=== PATIENT | female | born 1950 | race Caucasian/White ===

== ENCOUNTER → 2017-04-12 | Outpatient (CLI) | payer MEDICARE ==
--- NOTE | 2017-04-12 16:44 | Diagnostic Imaging Report ---
EXAM: Bilateral screening mammogram. The current study was also evaluated with a Computer Aided Detection (CAD) system. INDICATION: Screening. No current complaints stated on the questionnaire. COMPARISON: 03/06/2016. FINDINGS: The breasts are composed of heterogeneously dense parenchyma which may decrease mammographic sensitivity. There are scattered benign-appearing calcifications. Asymmetries along the lateral aspect of the right breast are seen. The left breast demonstrates no definite change. IMPRESSION: Focal compression views and ultrasound evaluation for lateral right breast asymmetries recommended. ACR BI-RADS Category 0: Incomplete. (Needs additional imaging evaluation). Result letter will be mailed to the patient. Note: At least 10% of breast cancer is not imaged by mammography. Dictated by: Dictated on workstation # [id number]
== END ==
LOC: RAD 11:07
PROVIDERS: ATTEND Internal Medicine
DX: Z12.31 Encounter for screening mammogram for malignant neoplasm of breast (principal); N64.89 Other specified disorders of breast
CPT/HCPCS: 77067

== ENCOUNTER → 2017-05-10 | Outpatient (CLI) | payer MEDICARE ==
--- NOTE | 2017-05-10 11:57 | Diagnostic Imaging Report ---
EXAMINATION: Right breast diagnostic mammogram with a Computer Aided Detection (CAD) system. INDICATION: Asymmetries in the upper and lateral aspects of the right breast. FINDINGS: Focal compression views in the outer aspect in the CC projection and in the upper aspect with a lateral view were performed and demonstrate heterogeneously dense background parenchyma with less prominent underlying asymmetries, in favor of summation artifacts. No confirmed underlying mass is seen. IMPRESSION: Focal compression views demonstrate less prominent asymmetry, suggestive of summation artifact of parenchyma. An ultrasound evaluation is pending. ACR BI-RADS Category 0: Incomplete. (Needs additional imaging evaluation). Result letter will be mailed to the patient. Note: At least 10% of breast cancer is not imaged by mammography. Dictated by: Dictated on workstation # [id number]
--- NOTE | 2017-05-10 12:00 | Diagnostic Imaging Report ---
EXAMINATION: Right breast ultrasound. INDICATION: Asymmetries seen on mammography. FINDINGS: The four-quadrants and retroareolar region of the right breast were scanned with no underlying abnormality seen. IMPRESSION: Negative study. Additional mammographic views suggested no underlying mass with asymmetries likely related to summation artifacts of parenchyma. Annual screening mammograms are recommended. ACR BI-RADS Category 1: Negative. Dictated by: Dictated on workstation # [id number]
== END ==
LOC: RAD 09:12
PROVIDERS: ATTEND Internal Medicine
DX: N64.89 Other specified disorders of breast (principal)
CPT/HCPCS: 76641

== ENCOUNTER 2018-01-24 10:48 | Outpatient (CLI) | payer MEDICARE ==
[~2018-01-24] VITALS: Ht 175.3 cm; Wt 69.9 kg
[2018-01-24 10:56] VITALS: BP 129/70
[2018-01-24] MEDS ORDERED: CHOL10007 PO (12:07)
[2018-01-24] MEDS ORDERED: TRIA1TAB3 PO (12:09)
== END 2018-01-24 11:07 | disposition home or self-care (01) ==
LOC: PREOP 10:48
PROVIDERS: ATTEND Podiatrist Foot & Ankle Surgery
DX: Z01.818 Encounter for other preprocedural examination (principal); Z11.2 Encounter for screening for other bacterial diseases; M20.41 Other hammer toe(s) (acquired), right foot; M77.41 Metatarsalgia, right foot
CPT/HCPCS: 87081

== ENCOUNTER 2018-02-14 06:16 | Day surgery (SDC) | payer MEDICARE ==
--- NOTE | 2018-02-02 08:25 | HISTORY AND PHYSICAL ---
DATE OF SERVICE: 02/14/2018 HISTORY OF PRESENT ILLNESS: The patient is a 67-year-old white female who is going to be undergoing hammertoe reduction of the 2nd through 5th digits on the right and a second metatarsal ostectomy on the right on 02/14/2018. She has had difficulty wearing normal footwear secondary to her hammertoes and reports some pain, especially of the second right digit with drift. She reports otherwise she has been feeling well and would like to do more walking, but is hampered by her foot discomfort. She does report if she stands too long, she will have some left lower extremity pain from the upper hamstring area to the calf area. It goes away within several minutes of sitting down and it is not keeping her from walking. She has a history of hypertension with no other significant past medical history. She has no history of pulmonary disease or cardiovascular disease. Her hypertension has been under good control. PAST SURGICAL HISTORY: Significant for hysterectomy in 2000. She had partial left retinal detachment requiring surgery in 09/2014, which spared her vision. PHYSICAL EXAMINATION: GENERAL: Reveals a well-appearing white female appears to be in no acute distress. VITAL SIGNS: Weight 154.2 pounds, 5 feet 9 inches tall. Blood pressure 120/90 initially and at the end of the interview 120/84. NECK: Revealed no JVD, adenopathy or bruits. CHEST: Clear. CARDIOVASCULAR: Reveals a regular rate and rhythm without murmur, S3 or S4. EXTREMITIES: Reveal no cyanosis, clubbing or edema. Dorsalis pedis pulses are 2+ and symmetrical. No evidence for edema, ulceration or dermatitis is noted. Hammertoe deformities are noted on the 2nd through 5th digits of the right foot. She has no palpable pain over the left thigh. Knee reveals no pain to palpation over the anserine bursa or medial or lateral joint lines. No crepitus is noted. No evidence for Long cyst is noted. ASSESSMENT AND PLAN: 1. There are no medical contraindications to proceeding with planned reduction of hammertoes and second metatarsal ostectomy. 2. Hypertension, under reasonable control. 3. Suspect left lower extremity radiculopathy with lumbar etiology likely L4-5 from the patient's description. Discussed conservative medical management.
[~2018-02-14] VITALS: Ht 175.3 cm; Wt 69.9 kg
[2018-02-14 06:10] VITALS: BP 133/82
[~2018-02-14 06:16] MED LIST: CHOL10007 PO; TRIA1TAB3 PO
[2018-02-14] MEDS: LACTATED RINGERS 1,000 ML IV PRN ×2 (06:30→08:10)
[2018-02-14] MEDS ORDERED: NS (IVPB) 100 ML ONE (06:55)
[2018-02-14] MEDS ORDERED: ceFAZolin 1,000 MG (ANCEF) VIAL ONE (06:55)
[2018-02-14] MEDS ORDERED: ceFAZolin INJECTION 1,000 MG in NS (IVPB) 100 ML IV ONE (07:00)
[2018-02-14] MEDS ORDERED: MIDAZOLAM 2 MG/2 ML (VERSED) VIAL ONE (07:09)
[2018-02-14] MEDS ORDERED: fentaNYL INJECTION 100 MCG/2 ML AMP ONE (07:10)
[2018-02-14] MEDS ORDERED: LIDOCAINE 1% INJ 20 ML (XYLOCAINE) VIAL ONE (07:20)
[2018-02-14] MEDS ORDERED: BUPIVACAINE 0.5% 30 ML (SENSORCAINE) VIAL ONE (07:20)
[2018-02-14] MEDS ORDERED: DEXAMETHASONE 10 MG/ML (DECADRON) 1 ML VIAL ONE (07:20)
--- NOTE | 2018-02-14 07:33 | Progress Note-Pre Operative ---
Pre-Operative Progress Note H&P Reviewed The H&P was reviewed, patient examined and no changes noted. Date Seen by Provider: Feb 14, 2018 Time Seen by Provider: 07:32 Date H&P Reviewed: Feb 14, 2018 Time H&P Reviewed: 07:32 Pre-Operative Diagnosis: Hammertoes right 2, 3, 4, 5 and hypertrophic 2nd metatarsal AZUL SWAN DPM Feb 14, 2018 7:33 am
[2018-02-14] MEDS ORDERED: LIDOCAINE PF 2% 5 ML (XYLOCAINE) VIAL ONE (08:51)
[2018-02-14] MEDS ORDERED: proPOfol 200 MG/20 ML (DIPRIVAN) VIAL IV ONE (08:51)
[2018-02-14] MEDS ORDERED: SEVOFLURANE (ULTANE) 15 ML INHAL SOLN ONE ×4 (08:51→09:24)
[2018-02-14] MEDS ORDERED: LIDOCAINE JELLY 2% (XYLOCAINE) 5 ML TUBE ONE (08:51)
[2018-02-14] MEDS ORDERED: ONDANSETRON 4 MG/2 ML (SDV) Z0FRAN ONE (08:52)
--- NOTE | 2018-02-14 09:35 | Progress Note-Post Operative ---
Post-Operative Progess Note Surgeon (s)/Plow Mechanic (s) Surgeon AZUL SWAN DPM Plow Mechanic: NONE Pre-Operative Diagnosis Hammertoes right 2, 3, 4, 5 and hypertrophic 2nd metatarsal Post-Operative Diagnosis same plus hypertrophic condyle of the right hallux Procedure & Operative Findings Date of Procedure 02/14/18 Procedure Performed/Findings Reduction of hammertoes 2, 4, 5 right, flexor tendon release 3rd right, 2nd metatarsal osteotomies, all right Anesthesia Type general Estimated Blood Loss Estimated blood loss (mL): minimal Specimens/Packing Specimens Removed none AZUL SWAN DPM Feb 14, 2018 9:35 am
[2018-02-14] MEDS ORDERED: CEPH500C PO (09:42)
[2018-02-14] MEDS ORDERED: ACHD5005 PO (09:42)
[2018-02-14] MEDS ORDERED: ONDANSETRON 4 MG/2 ML (SDV) Z0FRAN IVP PRN ×2 (09:45→10:15)
[2018-02-14] MEDS ORDERED: morphine INJ 10 MG/ML 1ML (SYR OR VIAL) IVP PRN (09:45)
[2018-02-14] MEDS ORDERED: MEPERIDINE (DEMEROL) INJ 50 MG/ML IVP PRN (09:45)
[2018-02-14] MEDS ORDERED: LACTATED RINGERS 1,000 ML IV SCH (10:01)
[2018-02-14] MEDS ORDERED: HYDROcodone/APAP 5 MG/325 MG (LORTAB) TAB PO PRN (10:15)
[2018-02-14 10:25] VITALS: BP 104/62
--- NOTE | 2018-02-14 10:51 | Diagnostic Imaging Report ---
INDICATION: Postop right foot. Time of exam 10:09 AM K wires are identified in the second through fourth toes. There's been partial resection of the distal aspect of the proximal phalanx of the fifth toe. There are screws within the distal first and second metatarsals. Bunionectomy has been performed. IMPRESSION: Satisfactory postop right foot. Dictated by: Dictated on workstation # [id number]
[2018-02-14 10:55] VITALS: BP 108/62
--- NOTE | 2018-02-14 11:39 | Physical Therapy Ortho Eval ---
PT Orthopedic Evaluation Type of Surgery right foot hammertoe surgery Prior Level of Function Current Living Status: Alone Locomotion (Upon Admit): Independent Patient states she has access to a rolling walker. Subjective Subjective Patient is partial weight bearing on right foot. Patient states she is weak on the left leg due to a nerve injury so she will be using a walker. Entry Into Home: Stairs Without Railing Steps Into Home: 1 Objective Objective Patient has no pain and states that her right foot is pretty numb. Motor Control Motor Control: Motor Control WNL ROM ROM: WFL Strength NT Transfer Transfers (B, C, W/C) (FIM): 5 Gait Gait Assistive Device: FWW Right Lower Extremity: Right Weight Bearing Status RLE: Partial Weight Bearing Left Lower Extremity: Left Weight Bearing Status LLE: Full Weight Bearing Gait (FIM): 2 Distance: 80' Gait Level of Assist: 4 (CGA) Summary/Comments no LOB. Patient also went up and down 1 step using a rolling walker with CGA and cues for safety and foot placement. Treatment Rendered Treatment: Therapeutic Exercises, Gait Train, Step Train Exercise Instruction: Ankle Pumps LAQ Assessment/Goals Goal Time Frame: 1 Visit Plan Treatment Plan: Discharge PT/Family Agrees to Plan: Yes Time Time In: 1113 Time Out: 1132 Total Billed Treatment Time: 19 Billed Treatment Time 1 visit EVL 19' Yes PT/OT Therapy GCodes Therapy Functional Limitation: Physical Therapy Test(s)/Tool used to determine: Level of Assistance Scale Functional Limitation-Current Charge Code: MOBCUR Modifier: CI Functional Limitation-Goal Charge Code: MOBGOAL Modifier: CI Functional Limitation-D/C Charge Codes: MOBDC Modifier: CI RADHA STARKS PT Feb 14, 2018 11:39
--- NOTE | 2018-02-14 14:40 | Anesthesia-General Post-Op ---
General Patient Condition Mental Status/LOC: Same as Preop Cardiovascular: Satisfactory Nausea/Vomiting: Absent Respiratory: Satisfactory Pain: Controlled Complications: Absent Post Op Complications Complications None Follow Up Care/Instructions Patient Instructions None needed. Anesthesia/Patient Condition Patient Condition Patient was seen after surgery and prior to discharge and she was doing well, no complaints, stable vital signs, no apparent adverse anesthesia problems. ANA FORTUNE DO Feb 14, 2018 14:40
--- NOTE | 2018-02-14 18:45 | OPERATIVE REPORT ---
DATE OF SERVICE: 02/14/2018 SURGEON: Jayla Swan DPM PREOPERATIVE DIAGNOSES: 1. Hammer digit syndrome, right second, third, fourth and fifth digits. 2. Hypertrophic second metatarsal right foot. 3. Hypertrophic condyle, right hallux. POSTOPERATIVE DIAGNOSES: 1. Hammer digit syndrome, right second, third, fourth and fifth digits. 2. Hypertrophic second metatarsal right foot. 3. Hypertrophic condyle, right hallux. PROCEDURE: 1. Reduction of hammertoe, right second, fourth and fifth digits. 2. Flexor tendon release, right third toe. 3. Second metatarsal osteotomy, right foot. 4. Condylectomy, right hallux. WOUND CLASS: Clean. ANESTHESIA: General. HEMOSTASIS: Pneumatic thigh tourniquet at 250 mmHg. INDICATION: This 52-year-old female presents complaining of painful hammertoes associated with the right foot. Conservative therapy has met with unsatisfactory results and the patient is agreeable to surgical intervention after risks and complications were discussed at length. No guarantees were extended to the patient and she is willing to proceed. DESCRIPTION OF PROCEDURE: The patient was brought back to the operating table, placed in a secure supine position. A general anesthetic was then induced. Appropriate timeout was performed. A pneumatic thigh tourniquet was placed on the right lower extremity over several layers of padding. The right foot was anesthetized utilizing 10 mL of 0.5% Marcaine injected in a local effusion to the second, third, fourth and fifth digits and the second metatarsal head area. The right foot was then prepped and draped in normal sterile manner. The right foot was then elevated and allowed to exsanguinate after which the tourniquet was inflated to 250 mmHg. Attention was then directed to the dorsal aspect of the right second and fourth digits, where approximately 4 cm longitudinal linear incision was created. The incision was deepened in the same plane with great care to identify and retract all vital neurovascular structures. All the necessary blood vessels were cauterized as encountered. The incision overlying the second digit was extended down to the extensor tendon where a Z slide lengthening was performed. The extensor tendon was reflected proximally releasing the extensor jorgensen. A dorsal capsulorrhaphy was performed to the metatarsophalangeal joint. The medial and lateral collateral ligaments were also released at the metatarsophalangeal joint. This exposed the hypertrophic head of the right second metatarsal. Next, an oblique osteotomy was performed from dorsal to plantar starting at the distal lateral aspect of the articular cartilage extending proximally and medially. This allowed the capital fragment to translocate proximally and medially. The capital fragment was fixated in its corrected position utilizing a 2.0 snap-off screw 14 mm of length driven from the most medial aspect of the articular cartilage across the osteotomy in a proximal lateral orientation. The head was further contoured and smoothed with a power bur. Attention was then directed to the fourth digit where a Z slide lengthening was performed as well and a dorsal capsulorrhaphy after the extensor jorgensen was released overlying the metatarsophalangeal joint. Next, the same procedure was performed at the proximal interphalangeal joint for the second and fourth digits where the head of the proximal phalanx was fashioned into a peg and a hole was created at the base of the middle phalanx for the peg-in-hole type arthrodesis. Excellent bony apposition and fixation was appreciated after a 0.045 K wire was driven down the digits of the second and fourth rays. The excess K wire was cut and a protective ball placed over the end of the wire. The wounds were flushed with copious amounts of normal saline and closure was performed in layers. Deep closure was performed with 3-0 Vicryl, superficial with 4-0 Vicryl, skin closure with 4-0 Prolene in a horizontal mattress type stitch. Attention was then directed to the right third toe where a flexible contracture was identified. Utilizing a 15 blade, a stab incision was created to the plantar aspect of the right third toe at the proximal interphalangeal joint. This allowed the digit to come into rectus alignment. A 0.045 K wire was driven down the end of the toe securing the digit in a rectus alignment. The wound was flushed with copious amounts of normal saline. The excess K wire was cut and a protective ball placed over the end of the wire. Attention was then directed to the right fifth digit where two semi elliptical incisions of approximately 1 cm were created from proximal lateral to distal medial orientation. The circumscribed skin was removed in toto. Dissection was carried out to the dorsal aspect of the extensor tendon overlying the proximal interphalangeal joint, which was sharply incised. The medial and lateral collateral ligaments were also released exposing the hypertrophic head of the proximal phalanx, which was resected utilizing power sagittal saw. The wound was flushed with normal saline, after which closure was performed in layers. Deep closure was performed with 3-0 Vicryl, superficial with 4-0 Vicryl, skin closed with 4-0 Prolene in a horizontal mattress type stitch. Attention was then directed to the medial aspect of the right hallux where at the interphalangeal joint a bony prominence was identified. A 2 cm longitudinal linear incision was created and subperiosteal dissection was carried out identifying the hypertrophic condyle, which was then reduced utilizing a side cutting bur. The wound was flushed with copious amounts of normal saline. Closure was then performed with 4-0 Prolene in a horizontal mattress type stitch. Postoperative injection consisted of 10 mL of 0.5% Marcaine injected in a local effusion to all the digits of the right foot. Postoperative dressing consisted of Betadine soaked Adaptic, sterile 4 x 4, sterile Kerlix, all secured with a Coban wrap. The patient tolerated the anesthesia and procedure well, was transported from the operating room to the recovery area with vital signs stable and vascular status intact to all digits of the right foot. She was given a prescription for Keflex and Vicodin. She is to follow up in my office in 10 days' period of time or sooner if necessary. She is to be partial weightbearing with the use of a walker for the next four weeks. Job ID: [id number] DocumentID: [id number] Dictated Date: 02/14/2018 09:50:41 [employer] Winder Date: 02/14/2018 18:44:52 Dictated By: JAYLA SWAN DPM
== END 2018-02-14 11:35 | disposition home or self-care (01) ==
LOC: SDC 06:16
PROVIDERS: ATTEND Podiatrist Foot & Ankle Surgery
DX: M20.41 Other hammer toe(s) (acquired), right foot (principal); M89.371 Hypertrophy of bone, right ankle and foot; I10 Essential (primary) hypertension; Z79.899 Other long term (current) drug therapy
CPT/HCPCS: 73620

== ENCOUNTER → 2018-04-13 | Outpatient (CLI) | payer MEDICARE ==
[~2018-04-13] MED LIST changes: +ACHD5005 PO; +CEPH500C PO
--- NOTE | 2018-04-13 16:27 | Diagnostic Imaging Report ---
Indication: Pre-MRI screening. Time of exam: 3:59 PM Impression: No radiopaque orbital foreign bodies are identified. Dictated by: Dictated on workstation # [id number]
--- NOTE | 2018-04-13 17:04 | Diagnostic Imaging Report ---
PROCEDURE: MRI left joint lower extremity without contrast. TECHNIQUE: Multiplanar, multisequence MR imaging of the left knee was performed without contrast. COMPARISON: None available. INDICATION: Knee pain. FINDINGS: MENISCI Medial meniscus: Near-complete radial tear at the posterior root fibers of the medial meniscus. Degenerative free-edge tearing of the medial meniscus body is present. The body of the medial meniscus is near completely extruded into the medial gutter. Lateral meniscus: Normal. LIGAMENTS ACL: Intact. PCL: Intact. MCL: MCL is intact with edema on both sides of the ligament indicative of low-grade sprain. LCL: The lateral collateral ligamentous complex is intact. EXTENSOR MECHANISM The extensor mechanism is intact. CARTILAGE Medial compartment: Diffuse chondral thinning throughout the medial compartment without superimposed full-thickness chondral loss. Lateral compartment: The lateral compartment articular cartilage is preserved without high-grade chondromalacia. Patellofemoral compartment: The patellofemoral articular cartilage is well preserved without high-grade chondromalacia. BONE Subchondral insufficiency fracture in the central weightbearing aspect of the medial femoral condyle has no collapse of the subchondral bone plate. There is a large amount of surrounding bone marrow edema present. SOFT TISSUE Small knee joint effusion. No Long's cyst. Nonspecific edema within the popliteal fossa is likely reactive in nature. IMPRESSION: 1. Acute to subacute subchondral insufficiency fracture of the medial femoral condyle. No articular surface depression. 2. Associated near-complete radial tear in the posterior horn of the medial meniscus at its root insertional fibers. 3. Low-grade MCL sprain. 4. Partial-thickness chondral loss in the medial compartment is degenerative in nature. Remainder of the articular cartilage throughout the knee is well preserved. 5. Small knee joint effusion. Dictated by: Dictated on workstation # [id number]
== END ==
LOC: RAD 15:09
PROVIDERS: ATTEND Nurse Practitioner
DX: Z01.818 Encounter for other preprocedural examination (principal); S83.242A Other tear of medial meniscus, current injury, left knee, initial encounter; M84.452A Pathological fracture, left femur, initial encounter for fracture; S83.412A Sprain of medial collateral ligament of left knee, initial encounter; M17.12 Unilateral primary osteoarthritis, left knee
CPT/HCPCS: 70250; 73721

== ENCOUNTER → 2018-05-20 | Outpatient (CLI) | payer MEDICARE ==
--- NOTE | 2018-05-20 13:31 | Diagnostic Imaging Report ---
INDICATION: Routine screening. Comparison is made with prior study from 04/12/2017 and 03/06/2016. 2-D and 3-D bilateral screening mammography was performed with CAD. The current study was also evaluated with a Computer Aided Detection (CAD) system. FINDINGS: Both breasts are heterogeneously dense, limiting the sensitivity of mammography. There is some mild nodularity along the lateral aspect of the left breast which appears stable. No new mass or malignant-appearing microcalcifications are seen. The axillae are unremarkable. IMPRESSION: No mammographic features suspicious for malignancy are identified. ACR BI-RADS Category 2: Benign findings. Result letter will be mailed to the patient. Note: At least 10% of breast cancer is not imaged by mammography. Dictated by: Dictated on workstation # [id number]
== END ==
LOC: RAD 09:20
PROVIDERS: ATTEND Internal Medicine
DX: Z12.31 Encounter for screening mammogram for malignant neoplasm of breast (principal)
CPT/HCPCS: 77067

== ENCOUNTER → 2018-09-07 | Outpatient (CLI) | payer MEDICARE | LOC: LABNPT 18:43 | PROVIDERS: ATTEND Nurse Practitioner Family | DX: N30.01 Acute cystitis with hematuria (principal) | CPT/HCPCS: 87077; 87088; 87186 ==

== ENCOUNTER 2018-09-16 07:30 | Emergency (ER) | payer MEDICARE ==
[~2018-09-16] VITALS: Ht 175.3 cm; Wt 64.0 kg
--- OUTSIDE RECORDS SUMMARY | 2018-09-16 07:34 | XMS REPORT | Clinical Summary ---
Author Author [facility] Organization [facility] Address Unknown Phone Unavailable Care Team Providers Care Public Health Aide Name Role Phone Dat Vera MD PCP Allergies No Known Allergies Current Medications Prescription Sig. Disp. Refills Start End Date Status Date triamterene-hydrochloroth Take 1 capsule by mouth Active iazide (DYAZIDE) 37.5-25 every morning. mg per capsule Active Problems No known active problems Resolved Problems Problem Noted Date Resolved Date Recent retinal detachment, partial, with single defect 10/23/20142013 Vitreous degeneration of left eye 10/23/2014 10/23/2014 Recent retinal detachment, partial, with single defect 10/23/20142013 Vitreous degeneration of left eye 10/23/2014 10/24/2014 Retinal detachment of left eye with multiple breaks 10/23/2014 10/24/2014 Social History Tobacco Use Types Packs/Day Years Used Date Never Smoker Alcohol Use Drinks/Week oz/Week Comments No Sex Assigned at Date Recorded Not on file Last Filed Vital Signs Vital Sign Reading Time Taken Blood Pressure 112/65 10/24/2014 7:09 AM [facility] Pulse 80 10/24/2014 7:09 AM [facility] Temperature 36.5 C (97.7 F) 10/24/2014 7:09 AM [facility] Respiratory Rate 18 10/24/2014 7:09 AM [facility] Oxygen Saturation 95% 10/24/2014 7:09 AM [facility] Inhaled Oxygen - - Concentration Weight 76.3 kg (168 lb 3.4 oz) 10/23/2014 8:02 PM [facility] Height 175.3 cm (5' 9") 10/23/2014 8:02 PM [facility] Body Mass Index 24.84 10/23/2014 8:02 PM [facility] Plan of Treatment Not on file Implants Implanted Type Area Financial Services Consultant Device Expiration Model / Identifier Date Serial / Lot Implant Eye Scleral Buckle Band Non-Tissue Left: Eye [employer] 2018 92-02 / Silicone Style 240 2.5 92-02 - Implant OPHTHALMIC / [id number] Implanted: Qty: 1 on 10/23/2014 by Giovanni Dahl MD Implant Eye Retinal Sponge Grooved Non-Tissue Left: Eye [employer] 2017 92-50-6.4 2.3mm X 6.4mm Style 516g 92-50-6.4 Implant OPHTHALMIC / - [id number] / Implanted: Qty: 1 on 10/23/2014 by [id number] Giovanni Dahl MD Results Not on filefrom Last 3 Months
--- OUTSIDE RECORDS SUMMARY | 2018-09-16 07:35 | XMS REPORT | Continuity of Care Document ---
Author Author [facility] Organization [facility] Address Unknown Phone Unavailable Allergies Active Description Code Type Severity Reaction Onset Reported/Identified Relationship to Patient Clinical Status Yes No Known Drug Allergies [id number] Drug Allergy Unknown N/A 07/10/2011 Medications There is no data. Problems Date Dx Coded Attending Type Code Diagnosis Diagnosed By 07/10/2011 Ot V76.51 02/14/2015 Ot V76.12 02/14/2015 Ot V76.12 02/14/2015 LUCIAN BUCK MD Ot V76.12 02/15/2015 Ot V76.12 02/15/2015 Ot V76.12 02/15/2015 LUCIAN BUCK MD Ot V76.12 03/01/2015 LUCIAN BUCK MD Ot V76.12 03/09/2016 LUCIAN BUCK MD Ot Z12.31 ENCNTR SCREEN MAMMOGRAM FOR MALIGNANT NE 03/19/2016 LUCIAN BUCK MD Ot Z12.31 ENCNTR SCREEN MAMMOGRAM FOR MALIGNANT NE 04/08/2017 Ot V76.12 OTH SCREEN MAMMO-MALIGN NEOPLASM OF ZULAY 04/08/2017 LUCIAN BUCK MD Ot V76.12 OTH SCREEN MAMMO-MALIGN NEOPLASM OF ZULAY 04/08/2017 LUCIAN BUCK MD Ot V76.12 OTH SCREEN MAMMO-MALIGN NEOPLASM OF ZULAY 04/08/2017 LUCIAN BUCK MD Ot Z12.31 ENCNTR SCREEN MAMMOGRAM FOR MALIGNANT NE 04/08/2017 Ot V76.12 OTH SCREEN MAMMO-MALIGN NEOPLASM OF ZULAY 04/08/2017 LUCIAN BUCK MD Ot V76.12 OTH SCREEN MAMMO-MALIGN NEOPLASM OF ZULAY 04/08/2017 LUCIAN BUCK MD Ot V76.12 OTH SCREEN MAMMO-MALIGN NEOPLASM OF ZULAY 04/08/2017 LUCIAN BUCK MD Ot Z12.31 ENCNTR SCREEN MAMMOGRAM FOR MALIGNANT NE 04/09/2017 Ot V76.12 OTH SCREEN MAMMO-MALIGN NEOPLASM OF ZULAY 04/09/2017 LUCIAN BUCK MD Ot V76.12 OTH SCREEN MAMMO-MALIGN NEOPLASM OF ZULAY 04/09/2017 LUCIAN BUCK MD Ot V76.12 OTH SCREEN MAMMO-MALIGN NEOPLASM OF ZULAY 04/09/2017 LUCIAN BUCK MD Ot Z12.31 ENCNTR SCREEN MAMMOGRAM FOR MALIGNANT NE 04/09/2017 Ot V76.12 OTH SCREEN MAMMO-MALIGN NEOPLASM OF ZULAY 04/09/2017 LUCIAN BUCK MD Ot V76.12 OTH SCREEN MAMMO-MALIGN NEOPLASM OF ZULAY 04/09/2017 LUCIAN BUCK MD Ot V76.12 OTH SCREEN MAMMO-MALIGN NEOPLASM OF ZULAY 04/09/2017 LUCIAN BUCK MD Ot Z12.31 ENCNTR SCREEN MAMMOGRAM FOR MALIGNANT NE 04/13/2017 LUCIAN BUCK MD Ot R92.8 OTH ABN AND INCONCLUSIVE FINDINGS ON DX 04/13/2017 LUCIAN BUCK MD Ot N64.89 OTHER SPECIFIED DISORDERS OF BREAST 04/13/2017 LUCIAN BUCK MD Ot Z12.31 ENCNTR SCREEN MAMMOGRAM FOR MALIGNANT NE 05/05/2017 LUCIAN BUCK MD Ot N64.89 OTHER SPECIFIED DISORDERS OF BREAST 05/05/2017 LUCIAN BUCK MD Ot Z12.31 ENCNTR SCREEN MAMMOGRAM FOR MALIGNANT NE 05/10/2017 LUCIAN BUCK MD Ot R92.8 OTH ABN AND INCONCLUSIVE FINDINGS ON DX 05/10/2017 LUCIAN BUCK MD Ot R92.8 OTH ABN AND INCONCLUSIVE FINDINGS ON DX 05/10/2017 Ot V76.12 OTH SCREEN MAMMO-MALIGN NEOPLASM OF ZULAY 05/10/2017 LUCIAN BUCK MD Ot V76.12 OTH SCREEN MAMMO-MALIGN NEOPLASM OF ZULAY 05/10/2017 LUCIAN BUCK MD Ot V76.12 OTH SCREEN MAMMO-MALIGN NEOPLASM OF ZULAY 05/10/2017 LUCIAN BUCK MD Ot Z12.31 ENCNTR SCREEN MAMMOGRAM FOR MALIGNANT NE 05/10/2017 LUCIAN BUCK MD Ot N64.89 OTHER SPECIFIED DISORDERS OF BREAST 05/10/2017 LUCIAN BUCK MD Ot Z12.31 ENCNTR SCREEN MAMMOGRAM FOR MALIGNANT NE 05/10/2017 CIELO ABREU, LUCIAN De La Cruz Ot R92.8 OTH ABN AND INCONCLUSIVE FINDINGS ON DX 05/10/2017 LUCIAN BUCK MD Ot R92.8 OTH ABN AND INCONCLUSIVE FINDINGS ON DX 06/02/2017 LUCIAN BUCK MD Ot N64.89 OTHER SPECIFIED DISORDERS OF BREAST 06/28/2017 LUCIAN BUCK MD Ot N64.89 OTHER SPECIFIED DISORDERS OF BREAST 01/26/2018 SOSA DPM, AZUL Q Ot M20.41 OTHER HAMMER TOE(S) (ACQUIRED), RIGHT FO 01/26/2018 SOSA DPM, AZUL Q Ot M77.41 METATARSALGIA, RIGHT FOOT 01/26/2018 SOSA DPM, AZUL Q Ot Z01.818 ENCOUNTER FOR OTHER PREPROCEDURAL EXAMIN 01/26/2018 SOSA DPM, AZUL Q Ot Z11.2 ENCOUNTER FOR SCREENING FOR OTHER BACTER 02/14/2018 SOSA DPM, AZUL Q Ot I10 ESSENTIAL (PRIMARY) HYPERTENSION 02/14/2018 SOSA DPM, AZUL Q Ot M20.41 OTHER HAMMER TOE(S) (ACQUIRED), RIGHT FO 02/14/2018 SOSA DPM, AZUL Q Ot 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, RIGHT ANKLE AND ALVARO 02/14/2018 SOSA DPM, AZUL Q Ot Z79.899 OTHER ROOFING MACHINE TENDER (CURRENT) DRUG THERAPY 02/16/2018 SOSA DPM, AZUL Q Ot I10 ESSENTIAL (PRIMARY) HYPERTENSION 02/16/2018 SOSA DPM, AZUL Q Ot M20.41 OTHER HAMMER TOE(S) (ACQUIRED), RIGHT FO 02/16/2018 SOSA DPM, AZUL Q Ot 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, RIGHT ANKLE AND ALVARO 02/16/2018 SOSA DPM, AZUL Q Ot Z79.899 OTHER ROOFING MACHINE TENDER (CURRENT) DRUG THERAPY 02/20/2018 SOSA DPM, AZUL Q Ot I10 ESSENTIAL (PRIMARY) HYPERTENSION 02/20/2018 SOSA DPM, AZUL Q Ot M20.41 OTHER HAMMER TOE(S) (ACQUIRED), RIGHT FO 02/20/2018 SOSA DPM, AZUL Q Ot 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, RIGHT ANKLE AND ALVARO 02/20/2018 SOSA DPM, AZUL Q Ot Z79.899 OTHER JAIL (CURRENT) DRUG THERAPY 04/14/2018 DALJIT MAZARIEGOS Ot M84.452A PATHOLOGICAL FRACTURE, LEFT FEMUR, INIT 04/14/2018 DALJIT MAZARIEGOS Ot S83.242A OTH TEAR OF MEDIAL MENISCUS, CURRENT INJ 04/14/2018 DALJIT MAZARIEGOSP Ot S83.412A SPRAIN OF MEDIAL COLLATERAL LIGAMENT OF 04/14/2018 DALJIT MAZARIEGOS Ot Z01.818 ENCOUNTER FOR OTHER PREPROCEDURAL EXAMIN 04/14/2018 DALJIT MAZARIEGOS Ot M17.12 UNILATERAL PRIMARY OSTEOARTHRITIS, LEFT 04/14/2018 DALJIT MAZARIEGOS Ot M84.452A PATHOLOGICAL FRACTURE, LEFT FEMUR, INIT 04/14/2018 DALJIT MAZARIEGOS Ot S83.242A OTH TEAR OF MEDIAL MENISCUS, CURRENT INJ 04/14/2018 DALJIT MAZARIEGOS Ot S83.412A SPRAIN OF MEDIAL COLLATERAL LIGAMENT OF 04/14/2018 DALJIT MAZARIEGOS Ot Z01.818 ENCOUNTER FOR OTHER PREPROCEDURAL EXAMIN 05/04/2018 DALJIT MAZARIEGOSP Ot M17.12 UNILATERAL PRIMARY OSTEOARTHRITIS, LEFT 05/04/2018 DALJIT MAZARIEGOS Ot M84.452A PATHOLOGICAL FRACTURE, LEFT FEMUR, INIT 05/04/2018 DALJIT MAZARIEGOS Ot S83.242A OTH TEAR OF MEDIAL MENISCUS, CURRENT INJ 05/04/2018 DALJIT MAZARIEGOS Ot S83.412A SPRAIN OF MEDIAL COLLATERAL LIGAMENT OF 05/04/2018 DALJIT MAZARIEGOS Ot Z01.818 ENCOUNTER FOR OTHER PREPROCEDURAL EXAMIN 05/20/2018 DALJIT MAZARIEGOSP Ot M17.12 UNILATERAL PRIMARY OSTEOARTHRITIS, LEFT 05/20/2018 DALJIT MAZARIEGOS Ot M84.452A PATHOLOGICAL FRACTURE, LEFT FEMUR, INIT 05/20/2018 DALJIT MAZARIEGOS Ot S83.242A OTH TEAR OF MEDIAL MENISCUS, CURRENT INJ 05/20/2018 DALJIT MAZARIEGOSP Ot S83.412A SPRAIN OF MEDIAL COLLATERAL LIGAMENT OF 05/20/2018 DALJIT MAZARIEGOS [facility] Ot Z01.818 ENCOUNTER FOR OTHER PREPROCEDURAL EXAMIN 05/23/2018 LUCIAN BUCK MD Ot Z12.31 ENCNTR SCREEN MAMMOGRAM FOR MALIGNANT NE 06/10/2018 LUCIAN BUCK MD Ot Z12.31 ENCNTR SCREEN MAMMOGRAM FOR MALIGNANT NE 09/09/2018 AMPARO ROBERTSON APRN Ot N30.01 ACUTE CYSTITIS WITH HEMATURIA 09/12/2018 AMPARO ROBERTSON APRN Ot N30.01 ACUTE CYSTITIS WITH HEMATURIA Procedures There is no data. Results Test Result Range Methicillin resistant Staphylococcus aureus (MRSA) screening culture - 11:05 Methicillin resistant Staphylococcus aureus (MRSA) screening culture NEG NRG Bacterial urine culture - 09/07/18 18:20 Bacterial urine culture [id number] NRG COLONY COUNT >100,000/ML NRG FTX;REPORTABLE FINAL WITH SUSCEPTIBILITY REPORTED NR FREE TEXT ENTRY 2 09-09-2018, 0905. NR RML Sensitivity Panel - 09/07/18 18:20 Gentamicin susceptibility test by minimum inhibitory concentration < = NRG Trimethoprim/sulfamethoxazole susceptibility test by minimum inhibitoryconcentration <= NRG Levofloxacin susceptibility test by minimum inhibitory concentration <= NRG Ampicillin susceptibility test by minimum inhibitory concentration < = NRG Cefazolin susceptibility test by minimum inhibitory concentration < = NRG Ceftriaxone susceptibility test by minimum inhibitory concentration <= NRG Ciprofloxacin susceptibility test by minimum inhibitory concentration <= NRG Meropenem susceptibility test by minimum inhibitory concentration < = NRG Nitrofurantoin susceptibility test by minimum inhibitory concentration <= NRG Amoxicillin and clavulanate potassium susc JOAQUÍN <= NRG Encounters ACCT No. Visit Date/Time Discharge Status Pt. Type Provider Facility Loc./Unit Complaint [id number] 09/07/2018 18:43:00 09/07/2018 23:59:59 CLS Outpatient AMPARO ROBERTSON APRN [facility] LABNPT [id number] 05/20/2018 09:20:00 05/20/2018 23:59:59 CLS Outpatient LUCIAN BUCK MD [facility] RAD SCREENING MAMMOGRAM [id number] 04/13/2018 15:09:00 04/13/2018 23:59:59 CLS Outpatient DALJIT MAZARIEGOS [facility] RAD DERANGEMENT OF OTHER MEDIAL MENISCUS [id number] 02/14/2018 06:16:00 02/14/2018 11:35:00 DIS Outpatient SOSA DPCARLOS TaylorIN Q [facility] HAMMERTOE [id number] 01/24/2018 10:48:00 01/24/2018 11:07:00 DIS Outpatient SOSA DPM, AZUL Q [facility] PREOP HAMMERTOE [id number] 05/10/2017 09:12:00 05/10/2017 23:59:59 CLS Outpatient LUCIAN BUCK MD [facility] RAD ABN MAMMO [id number] 04/12/2017 11:07:00 04/12/2017 23:59:59 CLS Outpatient LUCIAN BUCK MD [facility] RAD SCREENING [id number] 03/06/2016 10:57:00 03/06/2016 23:59:59 CLS Outpatient LUCIAN BUCK MD [facility] RAD SCREENING [id number] 02/15/2015 09:35:00 02/15/2015 23:59:59 CLS Outpatient LUCIAN BUCK MD [facility] RAD SCREENING [id number] 10/24/2013 14:50:00 10/24/2013 23:59:59 CLS Outpatient LUCIAN BUCK MD [facility] RAD SCREENING [id number] 08/23/2012 14:25:00 Document Registration [id number] 07/10/2011 07:36:00 Document Registration [id number] 02/23/2011 08:53:00 Document Registration
[2018-09-16] MEDS ORDERED: diphenhydrAMINE 25 MG TAB (BENADRYL) PO ONE (07:45)
[2018-09-16] MEDS ORDERED: FAMOTIDINE 20MG/2ML IV (PEPCID) IVP ONE (07:45)
[2018-09-16] MEDS ORDERED: methylPREDNISolone 125 MG (Solu-MEDROL) VIAL IVP ONE (07:45)
[2018-09-16 08:07] LABS: BILIRUBIN,URINE NEGATIVE (NEGATIVE); CLARITY,URINE CLEAR; COLOR,URINE AMBER; GLUCOSE, URINE (UA) NEGATIVE (NEGATIVE); KETONES,URINE 2+ (NEGATIVE); LEUKOCYTE ESTERASE ,URINE 1+ (NEGATIVE); NITRITE,URINE NEGATIVE (NEGATIVE); PH,URINE 6 (5-9); PROTEIN,URINE 2+ (NEGATIVE); UROBILINOGEN,URINE 1 MG/DL (NORMAL)
[2018-09-16 08:30] LABS: BASOPHILS % (AUTO) 0 % (0-10); EOSINOPHILS # (AUTO) 0.2 10^3/uL (0.0-0.3); EOSINOPHILS % (AUTO) 4 % (0-10); HEMATOCRIT 43 % (35-52); HEMOGLOBIN 14.5 G/DL (11.5-16.0); LYMPHOCYTES # (AUTO) 0.7 X 10^3 (1.0-4.0); LYMPHOCYTES % (AUTO) 16 % (12-44); MEAN CORPUSCULAR HEMOGLOBIN 30 PG (25-34); MEAN CORPUSCULAR HGB CONC 34 G/DL (32-36); MEAN CORPUSCULAR VOLUME 89 FL (80-99); MEAN PLATELET VOLUME 11.2 FL (7.4-10.4); MONOCYTES # (AUTO) 0.7 X 10^3 (0.0-1.0); MONOCYTES % (AUTO) 15 % (0-12); NEUTROPHILS # (AUTO) 2.8 X 10^3 (1.8-7.8); NEUTROPHILS % (AUTO) 64 % (42-75); PLATELET COUNT 142 10^3/uL (130-400); RED BLOOD COUNT 4.81 10^6/uL (4.35-5.85); WHITE BLOOD COUNT 4.3 10^3/uL (4.3-11.0)
[2018-09-16 08:43] LABS: BACTERIA,URINE FEW /HPF; CALCIUM OXALATE CRYSTALS,UR MODERATE /LPF; GRANULAR CASTS,URINE 0-2 /LPF; SQUAMOUS EPITHELIAL CELL,UR 25-50 /HPF; WBC,URINE 0-2 /HPF
[2018-09-16 08:45] LABS: ALBUMIN 4.4 GM/DL (3.2-4.5); BILIRUBIN,TOTAL 0.5 MG/DL (0.1-1.0); CALCIUM 9.5 MG/DL (8.5-10.1); CREATININE SERUM 1.06 MG/DL (0.60-1.30); POTASSIUM 3.4 MMOL/L (3.6-5.0); TOTAL PROTEIN 7.4 GM/DL (6.4-8.2)
[2018-09-16] MEDS ORDERED: LACTATED RINGERS 1,000 ML IV ONE (08:50)
[2018-09-16] MEDS ORDERED: FAMO-119 PO (10:16)
[2018-09-16] MEDS ORDERED: PRD20T PO (10:16)
--- NOTE | 2018-09-16 10:17 | ED General ---
General Chief Complaint: Allergic Reaction Stated Complaint: ALLERGIC REACTION;RASH Nursing Triage Note: PT CO OF ALLERGIC RX, PT HAS GENERALIZED RASH THINKS IS FROM BACTRIM DS Nursing Sepsis Screen: No Definite Risk Allergies and Home Medications Allergies Coded Allergies: sulfamethoxazole (Verified Allergy, Intermediate, RASH, 09/16/18) trimethoprim (Verified Allergy, Intermediate, RASH, 09/16/18) Home Medications Cephalexin 500 Mg Capsule, 1 CAP PO TID Prescribed by: AZUL SWAN on 02/14/18 0942 Cholecalciferol (Vitamin D3) 1,000 Unit Capsule, 1,000 UNIT PO DAILY, (Reported) Hydrocodone Bit/Acetaminophen 1 Tab Tab, 1-2 TAB PO Q4-6HR PRN for PAIN PRN PAIN Prescribed by: AZUL SWAN on 02/14/18 0942 Triamterene/Hydrochlorothiazid 1 Each Tablet, 1 EACH PO DAILY PRN, (Reported) Past Rekomjx-Vvssrb-Wquyrs Hx Patient Social History Alcohol Use: Occasionally Uses Recreational Drug Use: No Smoking Status: Never a Smoker Recent Foreign Travel: No Contact w/Someone Who Travel: No Recent Infectious Disease Expo: No Recent Hopitalizations: No Physical Abuse: No Sexual Abuse: No Immunizations Up To Date PED Vaccines UTD: No Date of Influenza Vaccine: Aug 22, 2017 Seasonal Allergies Seasonal Allergies: No Past Medical History Surgeries: Yes (vein stripping, ) Hysterectomy, Tonsillectomy Respiratory: No Cardiac: Yes (murmur as a child) Hypertension Neurological: No 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 0.0oz. 63.166400gc; 22.7 BMI Method:Stated Progress/Results/Core Measures Suspected Sepsis Recent Fever Within 48 Hours: No Infection Criteria Present: None New/Unexplained Altered Menta: No Sepsis Screen: No Definite Risk SIRS Temperature:100.0 Pulse: 87 Respiratory Rate: 18 Laboratory Tests 09/16/18 07:50: White Blood Count 4.3 Blood Pressure 113 /77 Mean: 89 Laboratory Tests 09/16/18 07:50: Creatinine 1.06, Platelet Count 142, Total Bilirubin 0.5 Results/Orders Lab Results Laboratory Tests Test 09/16/18 07:50 Range/Units White Blood Count 4.3 4.3-11.0 10^3/uL Red Blood Count 4.81 4.35-5.85 10^6/uL Hemoglobin 14.5 11.5-16.0 G/DL Hematocrit 43 35-52 % Mean Corpuscular Volume 89 80-99 FL Mean Corpuscular Hemoglobin 30 25-34 PG Mean Corpuscular Hemoglobin Concent 34 32-36 G/DL Red Cell Distribution Width 13.0 10.0-14.5 % Platelet Count 142 130-400 10^3/uL Mean Platelet Volume 11.2 H 7.4-10.4 FL Neutrophils (%) (Auto) 64 42-75 % Lymphocytes (%) (Auto) 16 12-44 % Monocytes (%) (Auto) 15 H 0-12 % Eosinophils (%) (Auto) 4 0-10 % Basophils (%) (Auto) 0 0-10 % Neutrophils # (Auto) 2.8 1.8-7.8 X 10^3 Lymphocytes # (Auto) 0.7 L 1.0-4.0 X 10^3 Monocytes # (Auto) 0.7 0.0-1.0 X 10^3 Eosinophils # (Auto) 0.2 0.0-0.3 10^3/uL Basophils # (Auto) 0.0 0.0-0.1 10^3/uL Urine Color ANDREE H Urine Clarity CLEAR Urine pH 6 5-9 Urine Specific Dugger 1.025 H 1.016-1.022 Urine Protein 2+ H NEGATIVE Urine Glucose (UA) NEGATIVE NEGATIVE Urine Ketones 2+ H NEGATIVE Urine Nitrite NEGATIVE NEGATIVE Urine Bilirubin NEGATIVE NEGATIVE Urine Urobilinogen 1 NORMAL MG/DL Urine Leukocyte Esterase 1+ H NEGATIVE Urine RBC (Auto) 3+ H NEGATIVE Urine RBC NONE /HPF Urine WBC 0-2 /HPF Urine Squamous Epithelial Cells 25-50 H /HPF Urine Renal Epithelial Cells NONE /HPF Urine Crystals PRESENT H /LPF Urine Calcium Oxalate Crystals MODERATE H /LPF Urine Bacteria FEW H /HPF Urine Casts PRESENT /LPF Urine Hyaline Casts 2-5 H /LPF Urine Granular Casts 0-2 H /LPF Urine Mucus SMALL H /LPF Urine Culture Indicated NO Sodium Level 134 L 135-145 MMOL/L Potassium Level 3.4 L 3.6-5.0 MMOL/L Chloride Level 96 L 98-107 MMOL/L Carbon Dioxide Level 23 21-32 MMOL/L Anion Gap 15 H 5-14 MMOL/L Blood Urea Nitrogen 10 7-18 MG/DL Creatinine 1.06 0.60-1.30 MG/DL Estimat Glomerular Filtration Rate 52 BUN/Creatinine Ratio 9 Glucose Level 111 H 70-105 MG/DL Calcium Level 9.5 8.5-10.1 MG/DL Corrected Calcium 9.2 8.5-10.1 MG/DL Total Bilirubin 0.5 0.1-1.0 MG/DL Aspartate Amino Transf (AST/SGOT) 20 5-34 U/L Alanine Aminotransferase (ALT/SGPT) 16 0-55 U/L Alkaline Phosphatase 70 40-136 U/L C-Reactive Protein High Sensitivity 1.87 H 0.00-0.50 MG/DL Total Protein 7.4 6.4-8.2 GM/DL Albumin 4.4 3.2-4.5 GM/DL My Orders Orders - HENRIQUE WELCH MD Saline Lock/Iv-Start (09/16/18 07:37) Cbc With Automated Diff (09/16/18 07:37) Comprehensive Metabolic Panel (09/16/18 07:37) Hs C Reactive Protein (09/16/18 07:37) Ua Culture If Indicated (09/16/18 07:37) Diphenhydramine Tablet (Benadryl Tablet) (09/16/18 07:45) Famotidine Injection (Pepcid Injection) (09/16/18 07:45) Methylprednisolone Sod Succ (Solu-Medrol (09/16/18 07:45) Saline Lock/Iv-Start (09/16/18 08:50) Lactated Ringers (Lr 1000 Ml Iv Solution (09/16/18 08:50) Medications Given in ED Current Medications Medications Dose Ordered Sig/Ramirez Route Start Time Stop Time Status Last Admin Dose Admin Diphenhydramine HCl 50 mg ONCE ONCE PO 09/16/18 07:45 09/16/18 07:46 DC 09/16/18 07:51 50 MG Famotidine 20 mg ONCE ONCE IVP 09/16/18 07:45 09/16/18 07:46 DC 09/16/18 07:48 20 MG Lactated Ringer's 1,000 ml @ 0 mls/hr Q0M ONCE IV 09/16/18 08:50 09/16/18 08:51 DC 09/16/18 08:56 1,000 MLS/HR Methylprednisolone Sodium Succinate 125 mg ONCE ONCE IVP 09/16/18 07:45 09/16/18 07:46 DC 09/16/18 07:48 125 MG Vital Signs/I&O 09/16/18 07:30 Temp 100.0 Pulse 87 Resp 18 B/P (MAP) 113/77 (89) Pulse Ox 99 Capillary Refill : Less Than 3 Seconds Blood Pressure Mean: 89 Departure Impression Primary Impression: Drug rash Additional Impression: Hypovolemia Disposition: 01 HOME, SELF-CARE Condition: Improved Departure-Patient Inst. Decision time for Depature: 10:13 Referrals: LUCIAN BUCK MD (PCP/Family) Primary Care Physician Patient Instructions: Drug Allergy Add. Discharge Instructions: Take Pepcid (famotidine and (and prednisone as prescribed. Keep Benadryl (diphenhydramine) on hand at all times. Take 50 mg every 4 hours as needed for itching or if you develop swelling of the lips, tongue, or mouth, or difficulty breathing. If you develop these symptoms, immediately present to the nearest emergency room or call 911 after taking 50 mg of Benadryl. It may take several days for the rash to resolve even with medications. Avoid direct sunlight until rash resolves. Always list Bactrim and Xeomin as allergies in future healthcare encounters. All discharge instructions reviewed with patient and/or family. Voiced understanding. Scripts Famotidine (Pepcid) 20 Mg Tablet 20 MG PO BID, #14 TAB Prov: HENRIQUE WELCH MD 09/16/18 Prednisone (Prednisone) 20 Mg Tab 1 TAB PO DAILY, #4 TAB Prov: HENRIQUE WELCH MD 09/16/18 HENRIQUE WELCH MD Sep 16, 2018 10:17
[2018-09-16 10:30] VITALS: BP 110/65
== END 2018-09-16 10:30 | disposition home or self-care (01) ==
LOC: EDUNIT# 07:30 → ER 07:31
DX: L27.0 Generalized skin eruption due to drugs and medicaments taken internally (principal); T50.905A Adverse effect of unspecified drugs, medicaments and biological substances, initial encounter; E86.1 Hypovolemia; I10 Essential (primary) hypertension; Z88.2 Allergy status to sulfonamides; Z88.8 Allergy status to other drugs, medicaments and biological substances; Z90.710 Acquired absence of both cervix and uterus; Z90.89 Acquired absence of other organs
CPT/HCPCS: 36415; 80053; 81000; 85025; 86141; 96361; 96374; 96375

== ENCOUNTER → 2019-07-03 | Outpatient (CLI) | payer MEDICARE ==
[~2019-07-03] MED LIST changes: +FAMO-119 PO; +PRD20T PO
--- NOTE | 2019-07-03 17:45 | Diagnostic Imaging Report ---
INDICATION: Routine screening. COMPARISON is made with prior mammogram from 05/20/2018 and 04/12/2017. TECHNIQUE: 2D and 3D bilateral screening mammography was performed CAD. FINDINGS: Both breasts are heterogeneously dense, limiting the sensitivity of mammography. Bilateral subpectoral breast implants are noted. Left implant somewhat lobulated contour but no evidence of extracapsular rupture is seen. There are benign calcifications in both breasts. No dominant mass or malignant appearing microcalcifications are seen. Axillae are unremarkable. IMPRESSION: BI-RADS Category 2. No mammographic features suspicious for malignancy are identified. ACR BI-RADS Category 2: Benign findings. Result letter will be mailed to the patient. Note: At least 10% of breast cancer is not imaged by mammography. Dictated by: Dictated on workstation # [id number]
== END ==
LOC: RAD 14:53
PROVIDERS: ATTEND Internal Medicine
DX: Z12.31 Encounter for screening mammogram for malignant neoplasm of breast (principal)
CPT/HCPCS: 77067

== ENCOUNTER → 2020-08-20 | Outpatient (CLI) | payer MEDICARE ==
--- NOTE | 2020-08-21 09:14 | Diagnostic Imaging Report ---
EXAMINATION: Digital mammogram INDICATION: Bilateral screening This study was compared to the prior exam of 07/03/2019. 05/20/2018 and 04/12/2017. At this time there are no current complaints. There are bilateral breast implants in place. The implants appear similar to the prior exam. There is no sign of an extracapsular rupture. The fibroglandular tissue in both breasts is heterogeneously dense. This does limit the sensitivity of this exam. Overall, there does not appear to have been any significant change. There is a small area of increased density in the mid lateral aspect of the right breast on the craniocaudad view at posterior depth. This finding cannot be identified on the MLO view and does not seem to persist on the tomographic images. Consequently suspect it is secondary to fibroglandular tissue. There is no primary or secondary sign of malignancy noted. IMPRESSION: 1. There is no evidence of malignancy. 2. The implants appear stable. ACR BI-RADS Category 1: Negative. Result letter will be mailed to the patient. Note: At least 10% of breast cancer is not imaged by mammography. Dictated by: Dictated on workstation # [id number]
== END ==
LOC: RAD 15:00
PROVIDERS: ATTEND Internal Medicine
DX: Z12.31 Encounter for screening mammogram for malignant neoplasm of breast (principal); Z98.82 Breast implant status
CPT/HCPCS: 77063; 77067

== ENCOUNTER 2020-12-02 05:30 | Outpatient (RCR) | payer MEDICARE ==
[~2020-12-02] VITALS: Ht 175 cm; Wt 69.4 kg
[2020-12-04] MEDS ORDERED: HYDR-4226 PO (08:45)
== END 2020-12-02 09:53 | disposition home or self-care (01) ==
LOC: PREOP 05:30
PROVIDERS: ATTEND Surgery
DX: Z01.812 Encounter for preprocedural laboratory examination (principal); D48.9 Neoplasm of uncertain behavior, unspecified; Z20.822 Contact with and (suspected) exposure to COVID-19
CPT/HCPCS: 87635

== ENCOUNTER 2020-12-04 06:52 | Day surgery (SDC) | payer MEDICARE ==
[~2020-12-04] VITALS: Ht 175 cm; Wt 69.4 kg
[2020-12-04] VITALS (8 sets, daily range): BP systolic 107–128; BP diastolic 67–75
[2020-12-04] MEDS ORDERED: ceFAZolin 2 GM IV Premixed 50 ML IV ONE (07:00)
[2020-12-04] MEDS ORDERED: MIDAZOLAM 2 MG/2 ML (VERSED) VIAL ONE (07:13)
[2020-12-04] MEDS ORDERED: fentaNYL INJECTION 100 MCG/2 ML AMP ONE (07:13)
[2020-12-04] MEDS: LACTATED RINGERS 1,000 ML IV PRN ×2 (07:16→09:06)
[2020-12-04] MEDS ORDERED: LIDOCAINE/EPI 1%-1:100,000 (XYLOCAINE) 50 ML ONE (07:18)
[2020-12-04] MEDS ORDERED: PROPOFOL INJECTION 50 ML IV ONE (07:23)
--- NOTE | 2020-12-04 08:07 | Progress Note-Pre Operative ---
Pre-Operative Progress Note H&P Reviewed The H&P was reviewed, patient examined and no changes noted. Time Seen by Provider: 07:59 Date H&P Reviewed: Dec 04, 2020 Time H&P Reviewed: 08:00 Pre-Operative Diagnosis: Left lower Extr mass, site marked LES QUEZADA DO Dec 04, 2020 08:07
[2020-12-04] MEDS ORDERED: HYDR-4226 PO (08:45)
--- NOTE | 2020-12-04 08:45 | Progress Note-Post Operative ---
Post-Operative Progess Note Surgeon (s)/Window Unit Air Conditioning Mechanic (s) Surgeon LES QUEZADA DO Window Unit Air Conditioning Mechanic: CHRISTIANO Palacio Pre-Operative Diagnosis Left lower Extr mass, site marked Post-Operative Diagnosis Same pending path Procedure & Operative Findings Date of Procedure 12/04/20 Procedure Performed/Findings Exc of LLE mass, 4.1 x 1.8cm Anesthesia Type IV sedation by DIRECTOR FOOD AND BEVERAGE Estimated Blood Loss Estimated blood loss (mL): scant Specimens/Packing Specimens Removed LLE mass LES QUEZADA DO Dec 04, 2020 08:45
--- NOTE | 2020-12-04 08:46 | Discharge Inst-Surgical ---
Discharge Inst-Surgical Depart Medication/Instructions New, Converted or Re-Newed RX: RX Given to Pt/Family Patient Instructions Follow up Appt: Make appointment for 1 week. [phone] Instructions: No strenuous activity. May shower in 24 hours, no tub bath or soaking. Use incentive spirometer at home as directed. No Smoking Skin/Wound Care: May remove bandages in am. You need to leave the Dermabond on incision it will fall off on it's own. Symptoms to Report: Appetite Changes, Extremity Discoloration, Numbness/Tingling, Swelling Increased, Bleeding Excessive, Eyesight Changes, Pain Increased, Urine Color Maricel nge, Constipation(Persistent), Fever over 101 degree F, Pain/Pressure in chest, Urinating Difficulty, Cough Up/Vomit Blood, Heart Beat Irreg/Pounding, Pain/Pressure in jaw, Cramps in feet or legs, Lightheadedness, Pain/Pressure in shoulder, Diarrhea(Persistent), Memory Changes Suddenly, Questions/Concerns, Weight gain consecutive days, Dizziness/Fainting, Nausea/Vomiting, Shortness of Breath, Weight gain over 2 pounds If questions or concerns contact your physician Or seek help at emergency department. Activity Activity as Tolerated: Yes Activity Instructions: Avoid Stress to Incision Driving Instructions: No Driving/Refer to Dr. Diane Discharge Diet: No Restrictions Diet After 24 Hours: Clear Liquid if Nauseous If Any Problems/Questions/Issu: Contact Your Physician, Go to Emergency Room Skin/Wound Care Infection Signs and Symptoms: Increased Redness, Foul Odor of Wound, Increased Drainage, Skin Itchy or Has a Rash, Increased Swelling, Temperature Above 101 F Bathing Instructions: Shower Stitches/Manoj/Dermabond Dis: Dermabond Ice Pack: Ice On and Off Site LES QUEZADA DO Dec 04, 2020 08:46
--- NOTE | 2020-12-04 08:50 | Anesthesia-General Post-Op ---
MAC Patient Condition Mental Status/LOC: Same as Preop Cardiovascular: Satisfactory Nausea/Vomiting: Absent Respiratory: Satisfactory Pain: Controlled Complications: Absent Post Op Complications Complications None Follow Up Care/Instructions Patient Instructions None needed. Anesthesiology Discharge Order Discharge Order Patient is doing well, no complaints, stable vital signs, no apparent adverse anesthesia problems. No complications reported per nursing. GONZALEZ MONTESINOS CRNA Dec 04, 2020 08:50
[2020-12-04] MEDS ORDERED: morphine INJ 10 MG/ML 1ML (SYR OR VIAL) IVP ONE (09:00)
--- NOTE | 2020-12-04 19:45 | OPERATIVE REPORT ---
DATE OF SERVICE: 12/04/2020 PREOPERATIVE DIAGNOSIS: Left lower extremity mass. POSTOPERATIVE DIAGNOSIS: Left lower extremity mass, pending pathology. PROCEDURE: Excision of the left lower extremity mass 4.1 cm x 1.8 cm elliptical incision. SURGEON: Chance Uribe DO EDUCATION ADMINISTRATOR: MICKY Virgen. ANESTHESIA: IV sedation by APARTMENT LEASING MANAGER. SPECIMEN: Mass with surrounding elliptical skin incision. BLOOD LOSS: Scant. FLUIDS: Per anesthesia. POSTOPERATIVE CONDITION: Stable. INDICATION FOR PROCEDURE: The patient is a 70-year-old female who has a mass in the left lower extremity. This had been marked prior and then agreed upon prior to surgery, needed to get this removed for pathology diagnosis. FINDINGS: The patient had this removed. A 4.1 x 1.8 cm elliptical incision. PROCEDURE NOTE: After informed consent was obtained, the patient was brought to the operating room, placed on the operating table in supine position. She was sterilely prepped and draped in normal fashion. Local lidocaine was used to infiltrate around this mass in the left lower extremity. Site had been marked. I made an incision with #15 blade, carried down through the skin into subcutaneous tissue, deepened down to subcutaneous tissue with Bovie electrocautery, going under this mass marking it superiorly with a short stitch, laterally with a long stitch and then passing this off table, had removed it completely with what looked like good margins around the mass. At this point, then created advancement flaps just undermining laterally and medially to be able to pull the skin together, closed the deep tissue with 3-0 Vicryl 2 interrupted sutures and then closed the skin with 4-0 undyed Monocryl 5 interrupted subcuticular stitches. Area was cleaned and dried. Dermabond placed as well as dressing. The patient tolerated the procedure and transferred to recovery room in stable condition. Sponge, instrument and needle count was correct at the end of the case. Job ID: [id number] DocumentID: [id number] Dictated Date: 12/04/2020 13:03:37 Sheet Tailer Date: 12/04/2020 19:45:20 Dictated By: CHANCE URIBE DO [facility]
== END 2020-12-04 10:15 | disposition home or self-care (01) ==
LOC: SDC 06:52
PROVIDERS: ATTEND Surgery
DX: D48.5 Neoplasm of uncertain behavior of skin (principal); L82.1 Other seborrheic keratosis; Z88.2 Allergy status to sulfonamides; Z88.1 Allergy status to other antibiotic agents; Z88.8 Allergy status to other drugs, medicaments and biological substances; I10 Essential (primary) hypertension; Z79.899 Other long term (current) drug therapy; Z80.1 Family history of malignant neoplasm of trachea, bronchus and lung; Z90.710 Acquired absence of both cervix and uterus
CPT/HCPCS: 87081; 88305

== ENCOUNTER 2021-02-18 05:28 | Outpatient (RCR) | payer MEDICARE ==
[~2021-02-18] VITALS: Ht 175.3 cm; Wt 68.2 kg
[~2021-02-18 05:28] MED LIST changes: +ASCO250T55 PO; +BIOT1TAB PO; +CHOL400C9 PO; +HYDR-4226 PO
== END 2021-02-18 09:11 | disposition home or self-care (01) ==
LOC: PREOP 05:28
PROVIDERS: ATTEND Podiatrist Foot & Ankle Surgery
DX: Z01.812 Encounter for preprocedural laboratory examination (principal); M20.12 Hallux valgus (acquired), left foot; M20.42 Other hammer toe(s) (acquired), left foot; Z20.822 Contact with and (suspected) exposure to COVID-19
CPT/HCPCS: 87635

== ENCOUNTER 2021-02-21 11:34 | Day surgery (SDC) | payer MEDICARE ==
--- NOTE | 2021-02-17 18:34 | HISTORY AND PHYSICAL ---
DATE OF SERVICE: 02/17/2021 PREOP HISTORY AND PHYSICAL HISTORY OF PRESENT ILLNESS: The patient is a 70-year-old white female scheduled for a bunion surgery as well as toe surgery per Dr. Grayson this Wednesday. She has a past history of hypertension with no known history of cardiovascular or pulmonary disease. She denies chest pain, dyspnea on exertion. She has been limited by foot pain due to osteoarthritis involving predominantly the MTPs. Hypertension has been well controlled and there have been no other significant health problems. MEDICATIONS: Include Dyazide, her only antihypertensive medication. She reports that she has received at least 1 COVID vaccination for which she had no difficulty. PAST SURGICAL HISTORY: Significant for having several skin cancers, basal and squamous cell removed in the past with no known history of melanoma. PHYSICAL EXAMINATION: GENERAL: Reveals a white female appeared to be in no acute distress. VITAL SIGNS: Blood pressure 140/86, weight over the wintertime was up 5.4 pounds to 153. HEENT: Unremarkable. CHEST: Clear to auscultation. CARDIOVASCULAR: Revealed a regular rate and rhythm without murmur, S3 or S4. EXTREMITIES: Reveal no cyanosis, clubbing or edema. ASSESSMENT AND PLAN: The patient is deemed to be of low risk for cardiovascular morbidity or mortality with no medical contraindications to proceeding with planned foot surgery. Job ID: [id number] DocumentID: [id number] Dictated Date: 02/17/2021 18:16:05 Director Enterprise Sales Date: 02/17/2021 18:34:02 Dictated By: LUCIAN BUCK MD
[~2021-02-21] VITALS: Ht 175.3 cm; Wt 68.2 kg
[2021-02-21] VITALS (11 sets, daily range): BP systolic 103–133; BP diastolic 57–86
[2021-02-21] MEDS ORDERED: LACTATED RINGERS 1,000 ML IV PRN (11:45)
[2021-02-21] MEDS ORDERED: ceFAZolin INJECTION 1,000 MG in WATER (STERILE) FOR INJECTION 10 ML IV ONE (11:45)
[2021-02-21] MEDS ORDERED: fentaNYL INJ 100 MCG/2 ML AMP ONE (11:54)
[2021-02-21] MEDS ORDERED: MIDAZOLAM 2 MG/2 ML (VERSED) VIAL ONE (11:55)
[2021-02-21] MEDS ORDERED: LIDOCAINE PF 2% 5 ML (XYLOCAINE) VIAL ONE (11:56)
[2021-02-21] MEDS ORDERED: proPOfol 200 MG/20 ML (DIPRIVAN) VIAL IV ONE (11:56)
[2021-02-21] MEDS ORDERED: ONDANSETRON 4 MG/2 ML (SDV) Z0FRAN ONE (11:58)
[2021-02-21] MEDS ORDERED: SEVOFLURANE (ULTANE) 15 ML INHAL SOLN ONE ×8 (11:58→15:02)
[2021-02-21] MEDS ORDERED: BUPIVACAINE 0.5% 30 ML (SENSORCAINE) VIAL ONE ×3 (12:15→13:20)
[2021-02-21] MEDS ORDERED: LIDOCAINE 1% INJ 20 ML 20 ML VIAL ONE (12:15)
--- NOTE | 2021-02-21 13:03 | Progress Note-Pre Operative ---
Pre-Operative Progress Note H&P Reviewed The H&P was reviewed, patient examined and no changes noted. Date Seen by Provider: Feb 21, 2021 Time Seen by Provider: 13:02 Date H&P Reviewed: Feb 21, 2021 Time H&P Reviewed: 13:02 Pre-Operative Diagnosis: Hallux Valgus, Hammertoe 2, 3, 4, 5, left foot AZUL SWAN DPClaudia Feb 21, 2021 13:03
[2021-02-21] MEDS ORDERED: GLYCOPYRROLATE 0.2 MG/ML (ROBINUL) 2 ML VIAL ONE (13:54)
--- NOTE | 2021-02-21 15:22 | Progress Note-Post Operative ---
Post-Operative Progess Note Surgeon (s)/Esthetician Makeup Artist (s) Surgeon AZUL SWAN DPM Esthetician Makeup Artist: none Pre-Operative Diagnosis Hallux Valgus, Hammertoe 2, 3, 4, 5, left foot Post-Operative Diagnosis Same Procedure & Operative Findings Date of Procedure 02/21/21 Procedure Performed/Findings Enrique-Esau Bunionectomy, Arthrodesis 2nd, Flexor Tendon Release 3rd and 4th, Arthroplasty 5th toe, left foot Anesthesia Type General Estimated Blood Loss Estimated blood loss (mL): Minimal Specimens/Packing Specimens Removed Bone and Tophi, left 1st metatarsal head AZUL SWAN DPM Feb 21, 2021 15:22
[2021-02-21] MEDS ORDERED: CEPH500C PO (15:25)
[2021-02-21] MEDS ORDERED: ACHD5005 PO (15:25)
[2021-02-21] MEDS ORDERED: fentaNYL INJ 100 MCG/2 ML AMP IVP ONE (15:30)
[2021-02-21] MEDS ORDERED: ONDANSETRON 4 MG/2 ML (SDV) Z0FRAN IVP PRN (15:30)
[2021-02-21] MEDS ORDERED: LACTATED RINGERS 1,000 ML IV SCH (15:30)
[2021-02-21] MEDS ORDERED: HYDROcodone/APAP 5 MG/325 MG (LORTAB) TAB PO PRN (15:30)
[2021-02-21] MEDS ORDERED: morphine INJ 10 MG/ML 1ML (SYR OR VIAL) IVP ONE (15:30)
[2021-02-21] MEDS ORDERED: MEPERIDINE (DEMEROL) INJ 50 MG/ML IVP ONE (15:30)
--- NOTE | 2021-02-21 16:06 | Anesthesia-General Post-Op ---
General Patient Condition Mental Status/LOC: Same as Preop Cardiovascular: Satisfactory Nausea/Vomiting: Absent Respiratory: Satisfactory Pain: Controlled Complications: Absent Post Op Complications Complications None Follow Up Care/Instructions Patient Instructions None needed. Anesthesia/Patient Condition Patient Condition Patient is doing well, no complaints, stable vital signs, no apparent adverse anesthesia problems. No complications reported per nursing. DALJIT CARRIZALES CRNA Feb 21, 2021 16:06
--- NOTE | 2021-02-21 16:16 | Diagnostic Imaging Report ---
EXAMINATION: Left foot radiographs, 2 views. COMPARISON: None. HISTORY: 70-year-old female, postoperative evaluation. FINDINGS: There are fixation pins traversing the second, third, and fourth digit phalanges. There is bone loss involving the distal aspect of the second proximal phalanx. Recommend correlation with surgical procedure performed. There are postoperative changes of the distal aspect of the fifth proximal phalanx with widening of the space between the distal aspect of the fifth proximal phalanx and fifth distal interphalangeal joint. There is no identified fifth middle phalanx. There are osteotomy changes of the first metatarsal with fixation screw. There is uncovering of the lateral sesamoid of the first digit. There are osteotomy changes of the first proximal phalanx with postoperative wire at this location. There is no identified acute fracture. There is no aggressive bone destruction. There is degenerative type enthesopathy at the Achilles tendon insertion. There is a small calcaneal heel spur. IMPRESSION: 1. Multifocal postoperative related changes as above without identified complication. Dictated by: Dictated on workstation # [id number]
--- NOTE | 2021-02-21 16:33 | Physical Therapy Ortho Eval ---
PT Orthopedic Evaluation Type of Surgery Left Hallux valgus repair, hammer toe repair toes 2, 3, 4, and 5. Prior Level of Function Current Living Status: Alone Locomotion (Upon Admit): Independent Established Durable Medical Eq: Shower Chair, Front Wheeled Walker, 3 in 1 Commode, Crutches Subjective Subjective Patient reports she has had a similar surgery on the other foot therefor knows about non wt bearing and mobility using devices. Entry Into Home: Stairs With Railing Steps Into Home: 1 Objective Objective Strength and ROM is WNL all extremities with exeption of surgical foot not tested. Motor Control Motor Control: Motor Control WNL ROM ROM: WFL Strength Strength: WFL Transfer SCALE: Activities may be completed with or without assistive devices. 9-Brfjgslcgv-tefszpl completes the activity by him/herself with no assistance from a helper. 5-Set-up or Clean-up Assistance-helper sets up or cleans up; patient completes activity. [place] assists only prior to or following the activity. 4-Supervision or Touching Assistance-helper provides verbal cues and/or touching/steadying and/or contact guard assistance as patient completes activity. Assistance may be provided throughout the activity or intermittently. 3-Partial/Moderate Assistance-helper does LESS THAN HALF the effort. [place] lifts, holds or supports trunk or limbs, but provides less than half the effort. 2-Substantial/Maximal Assistance-helper does MORE THAN HALF the effort. [place] lifts or holds trunk or limbs and provides more than half the effort. 9-Wowlgvlji-vtpiic does ALL the effort. Patient does none of the effort to complete the activity. Or, the assistance of 2 or more helpers is required for the patient to complete the activity. If activity was not attempted, code reason: 7-Patient Refused. 9-Not Applicable-not attempted and the patient did not perform the activity before the current illness, exacerbation or injury. 10-Not Attempted due to Environmental Limitations-(lack of equipment, weather restraints, etc.). 88-Not Attempted due to Medical Conditions or Safety Concerns. Transfers (B, C, W/C) (QC): 5 Gait Gait Assistive Device: FWW 300ft with FWW using hop to gait and non wt bearing on the (L). Ascended and descended a 6inch step with assist from her daughter. Right Lower Extremity: Right Weight Bearing Status RLE: Full Weight Bearing Left Lower Extremity: Left Weight Bearing Status LLE: Non Weight Bearing Gait (QC): 5 Distance (QC): 3=150 ft Distance: 300 Gait Level of Assist: 5 Summary/Comments verbal cues to stay behind center of the walker. Daughter was instructed on this safety issue Assessment/Goals Goal Time Frame: 1 Visit Understands HEP: Yes Safe Ambulation: Yes Plan Treatment Plan: Gait PT/Family Agrees to Plan: Yes Time Time In: 1650 Time Out: 1710 Total Billed Treatment Time: 30 Billed Treatment Time sandor begum low complexity 30 minutes No CHANDNI HINES PT Feb 21, 2021 16:33
--- NOTE | 2021-02-21 20:53 | OPERATIVE REPORT ---
DATE OF SERVICE: 02/21/2021 SURGEON: Azul Swan DPM PREOPERATIVE DIAGNOSES: 1. Hallux abductovalgus metatarsal primus varus, left. 2. Hammertoe, left second, third, fourth and fifth digits. 3. 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 POSTOPERATIVE DIAGNOSES: 1. Hallux abductovalgus metatarsal primus varus, left. 2. Hammertoe, left second, third, fourth and fifth digits. 3. 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 PROCEDURES: 1. Enrique-Esau bunionectomy, left. 2. Arthrodesis of the proximal interphalangeal joint, left second toe. 3. Flexor tendon release, left third digit. 4. Flexor tendon release, left fourth digit. 5. Arthroplasty, left fifth digit. 6. Exostectomy, left hallux. WOUND CLASS: Clean. ANESTHESIA: General. HEMOSTASIS: Pneumatic thigh tourniquet at 300 mmHg. INDICATIONS: This 70-year-old female presents complaining of a painful left foot. Conservative therapy has met with unsatisfactory results and the patient is agreeable to surgical intervention after risks and complications were discussed at length. No guarantees were extended to the patient and she is willing to proceed. DESCRIPTION OF PROCEDURE: The patient was brought back to the operating table, placed in secure supine position. Appropriate timeout was performed. General anesthetic was then induced. Pneumatic thigh tourniquet was placed on left lower extremity over several layers of padding. The left foot was then prepped and draped in normal sterile manner. A presurgical injection of 15 mL of 0.5% Marcaine was injected in a Navarrete block and a digital block to the lesser toes, left foot. The left foot was then elevated, allowed to exsanguinate, after which the tourniquet was inflated to 300 mmHg. Attention was then directed to the dorsal aspect of the left first ray where a 6 cm longitudinal linear incision was created. The incision was deepened in same plane with great care to identify and retract all vital neurovascular structures. Only necessary blood vessels were cauterized as encountered. The incision was deepened down to the capsule where a longitudinal capsulotomy was performed. This exposed the hypertrophic medial eminence to the first metatarsal head, which was resected utilizing a power sagittal saw. Next, blunt dissection was carried out into the first intermetatarsal space where a lateral release was performed. The conjoint tendon of the adductor hallucis was released lateral capsule. Lateral capsulorrhaphy was also released. The fibular sesamoidal ligament was also released. The hallux was then forcibly abducted releasing any additional fibers holding in its abnormal position. Attention was redirected to the first metatarsal head medial aspect where a Chevron-type osteotomy was performed. This allowed the capital fragment to translocate laterally and it was fixated in its corrected position utilizing a threaded 0.062 K-wire driven from proximal dorsal to plantar distal across the osteotomy with great care not to penetrate the articular cartilage. The K-wire was cut flush with the dorsal aspect of the first metatarsal. The head of the first metatarsal was further contoured and smoothed with a power sagittal saw, followed by a power bur. It should be noted that a portion of the medial eminence of the first metatarsal head was sent for gross and microscopic evaluation. White chalk like material was noted to the metatarsal head as well as the capsule grossly identified to be tophi. Attention was then directed to the proximal phalanx of the left hallux where an Esau-type osteotomy was performed. Two bone cuts were created, resecting a wedge of bone with the base medial and lateral cortices held intact to the diaphysis of the proximal phalanx. Once the wedge of bone was resected, the gap was closed, reducing the lateral deviation to the distal tip of the hallux. Two barge pilot holes were created at the dorsal medial aspect of the osteotomy allowing a 28-gauge monofilament wire to pass through these barge pilot holes securing the osteotomy in a closed position. Excellent bony apposition and fixation was appreciated at this time. The wound was flushed with copious amounts of normal saline and closure was performed in layers. Deep closure was performed with 3-0 Vicryl, superficial with 4-0 Vicryl, skin closure with 4-0 Prolene in a horizontal mattress type stitch. Attention was then directed to the lateral eminence to the interphalangeal joint of the left hallux. There is a hyperkeratotic lesion overlying the condyle of the interphalangeal joint of the hallux, a 1 cm incision was created dorsal to the hyperkeratotic lesion. Blunt dissection and sharp dissection was carried out down to bone where the bony prominence was identified and palpated. This area was then reduced utilizing a side cutting bur. The wound was flushed with copious amounts of normal saline and closed the skin was performed with 4-0 Prolene in a simple interrupted type stitch. Attention was then directed to the dorsal aspect of the left second digit where a contracture was noted. A 3 cm longitudinal linear incision was created from the metatarsophalangeal joint to the distal interphalangeal joint area. The incision was deepened in the same plane with great care to identify and retract all vital neurovascular structures. The incision was deepened down to the extensor tendon where a Z slide lengthening was performed. The extensor tendon was reflected proximally and the extensor jorgensen released as well as a dorsal capsulorrhaphy to the metatarsophalangeal joint. Next, dissection was carried out into the proximal interphalangeal joint where the medial lateral collateral ligaments were released. The hypertrophic head of the proximal phalanx was fashioned into a peg with a power sagittal saw and power bur and a hole was created to the base of the middle phalanx with a power bur. This allowed for the peg-in-hole type arthrodesis. The toe was aligned after copious amounts of normal saline for flushed after the alignment was appreciated. A 0.054 smooth K-wire was placed through the proximal phalanx into the middle phalanx holding the arthrodesis in a corrected alignment. Next, a #11 blade was utilized to do a flexor tendon release to the distal interphalangeal joint area allowing the distal phalanx to come up into more rectus alignment and then, the K-wire was allowed to pass from the middle phalanx out to the end of the toe holding the digit in corrected alignment. The excess K-wire was cut at the end of the toe, allowing for a protective ball placed over the wire and no contact between the protective ball and the distal surface of the toe. The wound was flushed once again and closure was performed in layers. Deep closure was performed with 3-0 Vicryl, superficial with 4-0 Vicryl, skin closed with 4-0 Prolene in a horizontal mattress type stitch. Attention was then directed to the flexible contractures of the left third and fourth digits. A stab incision was created at the proximal interphalangeal joint area with an #11 blade, the flexor tendon was palpated with the end of the blade and released. This allowed for excellent reduction of the hammertoes to the third and fourth digits. The wounds were flushed with copious amounts of normal saline. A K-wire, which was a smooth 0.054 was driven from distal to proximal, holding the digits 3 and 4 and appropriate light rectus alignment. The excess K-wire was cut and a protective ball placed over the end of the wires. Attention was then directed to the dorsal lateral aspect of the left fifth toe where a bony prominence was noted to the head of the proximal phalanx. There was also noted an adductor varus contracture of the toe. Two semi-elliptical incisions were created from dorsal medial to proximal lateral circumscribing the skin overlying the proximal interphalangeal joint. The circumscribed skin was removed in toto. The incision was deepened down to extensor tendon where a transverse tenotomy was performed overlying the proximal interphalangeal joint. The medial and lateral collateral ligaments were released. This exposed the hypertrophic head of the proximal phalanx, which was resected utilizing power sagittal saw. The wound was flushed with copious amounts of normal saline and closure was performed in layers. The extensor tendon was repaired with 3-0 Vicryl, subcutaneous tissue was repaired with 4-0 Vicryl and skin closure was performed with 4-0 Prolene in a horizontal mattress type stitch. Postoperative injection consisted of 10 mg dexamethasone into the left first metatarsophalangeal joint area and into the first intermetatarsal space. Next, approximately 12 mL of 0.5% Marcaine was injected in a local infusion to the surgical sites. Postoperative dressing consisted of Betadine soaked Adaptic, sterile 4 x 4, sterile Kerlix all secured with a Coban wrap. The patient tolerated the anesthesia and procedure well and was transported from the operating room to the recovery room with vital signs stable and vascular status intact to all digits of the left foot. Postoperative instructions were dispensed to the patient as well as prescription for Keflex and hydrocodone. We will see her back in the office in 10 days' period of time or sooner if necessary. Job ID: [id number] DocumentID: [id number] Dictated Date: 02/21/2021 15:38:21 Construction Controller Date: 02/21/2021 20:52:44 Dictated By: AZUL SWAN DPM
== END 2021-02-21 17:15 ==
LOC: SDC 11:34
PROVIDERS: ATTEND Podiatrist Foot & Ankle Surgery
DX: M20.12 Hallux valgus (acquired), left foot (principal); M20.32 Hallux varus (acquired), left foot; M20.42 Other hammer toe(s) (acquired), left foot; I10 Essential (primary) hypertension; Z79.899 Other long term (current) drug therapy; Z88.2 Allergy status to sulfonamides; Z88.1 Allergy status to other antibiotic agents
CPT/HCPCS: 73620; 87081

== ENCOUNTER 2021-04-23 11:44 | Outpatient (CLI) | payer MEDICARE ==
[~2021-04-23] VITALS: Ht 175.3 cm; Wt 68.1 kg
== END 2021-04-23 14:15 | disposition home or self-care (01) ==
LOC: PREOP 11:44
PROVIDERS: ATTEND Internal Medicine
DX: Z01.818 Encounter for other preprocedural examination (principal)

== ENCOUNTER 2021-05-02 08:29 | Day surgery (SDC) | payer MEDICARE ==
--- NOTE | 2021-04-24 07:24 | HISTORY AND PHYSICAL ---
DATE OF SERVICE: COLONOSCOPY HISTORY AND ADMISSION HISTORY OF PRESENT ILLNESS: The patient is a 70-year-old white female seen for office followup on the 04/16 for hypertension. She had one other screening colonoscopy done 10 years ago and is being set up for her second screening colonoscopy. She is seemed to be of average risk because she is not aware of any family history for colon cancer. She reports that she has been feeling well, some occasional shoulder pain bilaterally, but is not currently bothering her and some occasional low back pain without radicular symptoms. She has put on little bit of weight and she has not been able to walk due to a foot surgery. She has just been given all clear to start walking, is not having any significant foot pain and plans to begin walking again. Her weight was up 4.8 pounds from 2 months ago. She denies abdominal pain, change in bowel habit, bright red blood per rectum or melena. She has had no dyspnea on exertion or chest discomfort. PHYSICAL EXAMINATION: GENERAL: Reveals a white female, appears to be in no acute distress. VITAL SIGNS: Weight 157.8 pounds, blood pressure 100/70. HEENT: Unremarkable. CHEST: Clear to auscultation. CARDIOVASCULAR: Reveals a regular rate and rhythm without murmur, S3 or S4. ABDOMEN: Soft, supple without mass, organomegaly or tenderness. EXTREMITIES: Reveal no cyanosis, clubbing or edema. ASSESSMENT AND PLAN: Hypertension, under good control. Blood tests were reviewed with the patient pointing out her cholesterol numbers are a little bit higher with total cholesterol 235, triglyceride level of 108 and LDL of 105 with HDL 58 due to a decrease in activity. Encouraged as well to get back to regular walking. Screening colonoscopy was set up after prep instructions and discussion for 05/02. Job ID: [id number] DocumentID: [id number] Dictated Date: 04/16/2021 11:51:29 Circuit Board Assembler Date: 04/16/2021 12:09:09 Dictated By: LUCIAN BUCK MD
[~2021-05-02] VITALS: Ht 175.3 cm; Wt 68.1 kg
[2021-05-02] MEDS ORDERED: LACTATED RINGERS 1,000 ML IV STA (08:35)
[2021-05-02 08:45] VITALS: BP 101/67
[2021-05-02] MEDS ORDERED: LIDOCAINE JELLY 2% 6 ML SYRINGE MM PRN (08:45)
--- NOTE | 2021-05-02 08:47 | Pre-Op Note & Conscious Sedat ---
Pre-Operative Progress Note H&P Reviewed The H&P was reviewed, patient examined and no changes noted. Date H&P Reviewed: May 02, 2021 Time H&P Reviewed: 08:47 Conscious Sedation Pre-Proced ASA Score 2 For ASA 3 and 4: Consider anesthesia and medical clearance. Also, for patients with a history of failed moderate sedation consider anesthesia. Airway Lungs Heart ASA score ASA 1: a normal healthy patient ASA 2: a patient with a mild systemic disease (mid diabetes, controlled hypertension, obesity ASA 3: a patient with a severe systemic disease that limits activity (angina, COPD, prior Myocardial infarction) ASA 4: a patient with an incapacitating disease that is a constant threat to life (CHF, renal failure) ASA 5: a moribund patient not expected to survive 24 hrs. (ruptured aneurysm) ASA 6: a declared brain- patient whose organs are being harvested. For emergent operations, add the letter E after the classification Mallampati Classification Grade 1 Sedation Plan Analgesia, Amnesia, Plan communicated to team members, Discussed options with patient/fam, Discussed risks with patient/fam The patient is an appropriate candidate to undergo the planned procedure, sedation, and anesthesia. The patient immediately re-assessed prior to indication. LUCIAN BUCK MD May 02, 2021 08:47
[2021-05-02] MEDS ORDERED: LACTATED RINGERS 1,000 ML IV ONE (08:52)
[2021-05-02] MEDS ORDERED: MIDAZOLAM 2 MG/2 ML (VERSED) VIAL ONE (09:18)
[2021-05-02] MEDS ORDERED: PROPOFOL INJECTION 50 ML IV ONE (09:18)
[2021-05-02] MEDS ORDERED: LIDOCAINE JELLY 2% 6 ML SYRINGE ONE (09:21)
[2021-05-02 09:40] VITALS: BP 104/58
[2021-05-02 09:45] VITALS: BP 106/60
[2021-05-02 09:50] VITALS: BP 122/66
[2021-05-02 09:55] VITALS: BP 122/66
[2021-05-02 10:20] VITALS: BP 125/68
--- NOTE | 2021-05-02 10:54 | Anesthesia-General Post-Op ---
MAC Patient Condition Mental Status/LOC: Same as Preop Cardiovascular: Satisfactory Nausea/Vomiting: Absent Respiratory: Satisfactory Pain: Controlled Complications: Absent Post Op Complications Complications None Follow Up Care/Instructions Patient Instructions None needed. Anesthesiology Discharge Order Discharge Order Patient is doing well, no complaints, stable vital signs, no apparent adverse anesthesia problems. No complications reported per nursing. KAY DENNIS CRNA May 02, 2021 10:54
--- NOTE | 2021-05-02 16:59 | OPERATIVE REPORT ---
DATE OF SERVICE: COLONOSCOPY SUMMARY INDICATION FOR THE PROCEDURE: Screening colonoscopy. The patient was placed in the left lateral decubitus position. Prior to undergoing colonoscopy, digital rectal evaluation was performed. Anal sphincter tone was normal and the perianal reflexes intact. No abnormalities were noted on digital inspection of the anal canal or distal rectal vault. The colonoscope was inserted into the rectum and under direct visualization advanced to cecum. The cecum was identified by identification of the ileocecal valve and cecal strap. Quality of prep was good. FINDINGS: There was no evidence for internal or external hemorrhoids. The rectum, sigmoid colon, descending colon, splenic flexure and transverse colon were unremarkable. A diminutive sessile 3 mm polyp was noted at the hepatic flexure, was biopsied and ablated with no subsequent blood loss. The ascending colon and cecum were unremarkable. There was no evidence for diverticular disease on today's procedure. ASSESSMENT: One diminutive sessile polyp approximately 3 mm in size noted in hepatic flexure, was biopsied and ablated with no subsequent blood loss. This was otherwise normal colonoscopy to the cecum. Advocate consideration for repeat screening colonoscopy in 10 years. Job ID: [id number] DocumentID: [id number] Dictated Date: 05/02/2021 09:45:46 Senior Ui Designer Date: 05/02/2021 16:57:41 Dictated By: LUCIAN BUCK MD
== END 2021-05-02 10:25 | disposition home or self-care (01) ==
LOC: ENDO 08:29
PROVIDERS: ATTEND Internal Medicine
DX: Z12.11 Encounter for screening for malignant neoplasm of colon (principal); D12.3 Benign neoplasm of transverse colon; I10 Essential (primary) hypertension; Z79.899 Other long term (current) drug therapy

== ENCOUNTER → 2022-02-13 | Outpatient (CLI) | payer MEDICARE ==
--- NOTE | 2022-02-13 11:57 | Diagnostic Imaging Report ---
INDICATION: Routine screening. Comparison is made with prior mammogram from 08/20/2020 and 07/03/2019. 2-D and 3-D bilateral screening mammography was performed with CAD. Bilateral subpectoral breast implants again noted. Implant contours remain smooth. Both breasts remain heterogeneously dense, limiting the sensitivity of mammography. There is an ovoid density in the right breast just lateral to the nipple line on the CC view at posterior depth. No definite corresponding density on the MLO view is seen. Additional views are recommended. There is also a density in the medial left breast on the CC implant displaced view which appears prominent. No corresponding density on the MLO view is seen. Additional views of this area is also recommended. There are scattered benign calcifications. Axillae are unremarkable. IMPRESSION: Bilateral breast densities. Additional views recommended for further evaluation. ACR BI-RADS Category 0: Incomplete. (Needs additional imaging evaluation). Result letter will be mailed to the patient. Note: At least 10% of breast cancer is not imaged by mammography. BI-RADS Category 0 Dictated by: Dictated on workstation # [id number]
== END ==
LOC: RAD 11:00
PROVIDERS: ATTEND Internal Medicine
DX: Z12.31 Encounter for screening mammogram for malignant neoplasm of breast (principal)
CPT/HCPCS: 77063; 77067

== ENCOUNTER → 2022-02-20 | Outpatient (CLI) | payer MEDICARE ==
--- NOTE | 2022-02-20 14:10 | Diagnostic Imaging Report ---
Indication: Bilateral breast densities. Patient presents for additional views. Correlation is made with screening mammogram from 02/13/2022. 2-D and 3-D bilateral diagnostic mammography was performed. This included spot compression CC views and rolled CC views. On the left, there appears be normal dispersion of fibroglandular elements. The density noted in the medial left breast most likely represents superimposed tissue. No underlying mass is seen. On the right, there is a persistent ovoid circumscribed density in the outer right breast approximately 6 cm from the nipple. This may be superiorly located. Further evaluation with ultrasound is recommended. IMPRESSION: BI-RADS Category 0 1. Resolution of left breast density, likely representing superimposed tissue. 2. Persistent ovoid density in the upper outer right breast at mid to posterior depth. Further evaluation with ultrasound is recommended and will be performed today. ACR BI-RADS Category 0: Incomplete. (Needs additional imaging evaluation). Result letter will be mailed to the patient. Note: At least 10% of breast cancer is not imaged by mammography. Dictated by: Dictated on workstation # [id number]
--- NOTE | 2022-02-20 14:18 | Diagnostic Imaging Report ---
INDICATION: Right breast density. Correlation is made with a diagnostic mammogram earlier the same day and screening mammogram from 02/13/2022. Sonographic interrogation of the outer right breast was performed. No sonographic abnormality is identified. No solid or cystic mass is detected. IMPRESSION: BI-RADS Category 3 No sonographic abnormality is detected. Even so, follow-up right mammogram in 6 months is recommended to show continued stability. ACR BI-RADS Category 3: Probably benign findings. Result letter will be mailed to the patient. Note: At least 10% of breast cancer is not imaged by mammography. Dictated by: Dictated on workstation # [id number]
== END ==
LOC: RAD 12:45
PROVIDERS: ATTEND Internal Medicine
DX: R92.2 Inconclusive mammogram (principal)
CPT/HCPCS: 76642; 77066; G0279; 77062

== ENCOUNTER 2023-02-19 14:45 | Emergency (ER) | payer MEDICARE ==
[~2023-02-19] VITALS: Ht 175 cm; Wt 68.0 kg
--- NOTE | 2023-02-19 14:55 | ED Lower Extremity ---
General Chief Complaint: Lower Extremity Stated Complaint: LT KNEE INJ Source: patient Exam Limitations: no limitations History of Present Illness Date Seen by Provider: Feb 19, 2023 Time Seen by Provider: 14:52 Initial Comments Patient is a 72-year-old female presents ED with left knee injury. She states 3 hours ago she was at [facility] in [place] when she slipped on the hardwood floor landing directly on her left knee. Since then she has not been able to stand or bear weight on this left leg. She been applying ice to help with the swelling. She is not able to flex the left knee secondary to pain. She states her left knee feels "squishy". She denies any distal numbness and tingling, head injury, back pain. She denies taking thing for pain or refused any pain medication on arrival. Allergies and Home Medications Allergies Coded Allergies: sulfamethoxazole (Verified Allergy, Intermediate, RASH, 12/04/20) trimethoprim (Verified Allergy, Intermediate, RASH, 12/04/20) Patient Home Medication List Home Medication List Reviewed: Yes Hydrocodone/Acetaminophen (Hydrocodone-Acetamin 5-325 mg) 5 Mg-325 Mg Tablet, 1 TAB PO Q4H PRN for PAIN-MODERATE (5-7) Prescribed by: RAINER DELGADO on 02/19/23 1530 Triamterene/Hydrochlorothiazid (Triamterene-Hctz 37.5-25 mg Tb) 1 Each Tablet, 1 EACH PO DAILY PRN, (Reported) Entered as Reported by: UGO BRAXTON on 01/24/18 1209 Review of Systems Constitutional: No chills, No diaphoresis, No fever, No malaise, No weakness EENTM: No ear pain, No blurred vision, No double vision Respiratory: No cough, No dyspnea on exertion, No orthopnea, No short of breath, No wheezing Cardiovascular: No chest pain Gastrointestinal: No abdominal pain, No diarrhea, No nausea, No vomiting Genitourinary: No decreased output, No discharge Musculoskeletal: No back pain; joint pain, joint swelling; No muscle pain, No muscle stiffness Skin: No change in color, No change in hair/nails All Other Systems Reviewed Negative Unless Noted: Yes Past Rwfftrx-Pcrdco-Euyjdi Hx Immunizations Up To Date PED Vaccines UTD: No Seasonal Allergies Seasonal Allergies: No Past Medical History Surgeries: Yes (vein stripping) Hysterectomy, Tonsillectomy Respiratory: No Currently Using CPAP: No Currently Using BIPAP: No Cardiac: Yes (murmur as a child) Heart Murmur, Hypertension Neurological: No 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 0.0oz. 63.957653ug; 22.16 BMI Method:Stated General Appearance: WD/WN, no apparent distress HEENT: PERRL/EOMI, normal ENT inspection, TMs normal, pharynx normal Neck: non-tender, full range of motion, supple Cardiovascular: regular rate, rhythm, no edema, no gallop, no JVD Respiratory: chest non-tender, lungs clear, normal breath sounds, no respiratory distress Gastrointestinal: normal bowel sounds, non tender, soft, no organomegaly Back: normal inspection, no CVA tenderness Hips: bilateral hip non-tender, bilateral hip normal inspection, bilateral hip normal range of motion Knees: left knee pain, left knee soft tissue tenderness, left knee swelling, left knee other (Left patella tenderness with full extension. 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 This occurred around 12:00 today. She slipped and fell. Due to mechanism of injury and exam concerning for patella fracture. X-ray shows a transverse fracture through the left patella with about 2 cm and separation of the patella fragments. Patient was neurovascular intact. Contacted orthopedic Dr. Kirk initially recommended knee immobilizer crutches and to follow-up in the clinic next week. After discussing results with patient they were requesting Dr. Beltran since he performed a left knee arthroscopy with meniscus repair in the past. Contacted Dr. Beltran orthopedic recommended to follow up on Wednesday. Patient agrees with this plan of action. Impression Primary Impression: Patella fracture Disposition: HOME, SELF-CARE Condition: Stable Departure-Patient Inst. Decision time for Depature: 15:29 Referrals: LUCIAN BUCK MD (PCP/Family) Primary Care Physician BECKY BELTRAN MD Patient Instructions: Patella Fracture ED Scripts Hydrocodone/Acetaminophen (Hydrocodone-Acetamin 5-325 mg) 5 Mg-325 Mg Tablet 1 TAB PO Q4H PRN for PAIN-MODERATE (5-7), #10 TAB Prov: MASTER GARCIA 02/19/23 MASTER GARCIA Feb 19, 2023 14:55
--- NOTE | 2023-02-19 15:16 | Diagnostic Imaging Report ---
EXAMINATION: Left knee radiographs, 3 views. COMPARISON: None. HISTORY: 72-year-old female, left knee pain. FINDINGS: There is a transversely oriented displaced fracture of the patella. There is separation of the fracture fragments in proximal to distal extent by approximately 2 cm. There is no sizable left knee joint effusion. There is mild medial compartment joint space loss with osteophyte formation. IMPRESSION: Transversely oriented displaced fracture of the patella with separation of fracture fragments by 2 cm. Dictated by: Dictated on workstation # [id number]
[2023-02-19] MEDS ORDERED: ACHD5005 PO (15:30)
[2023-02-19 15:35] VITALS: BP 106/70
== END 2023-02-19 15:35 | disposition home or self-care (01) ==
LOC: EDUNIT# 14:45 → ER 14:46
DX: S82.002A Unspecified fracture of left patella, initial encounter for closed fracture (principal); W01.0XXA Fall on same level from slipping, tripping and stumbling without subsequent striking against object, initial encounter; Y92.89 Other specified places as the place of occurrence of the external cause
CPT/HCPCS: 73562

== ENCOUNTER 2023-02-22 11:06 | Outpatient (CLI) | payer MEDICARE ==
[~2023-02-22] VITALS: Ht 175.3 cm; Wt 65.9 kg
[2023-02-22] MEDS ORDERED: CHOL-34 PO (12:21)
== END 2023-02-22 12:45 | disposition home or self-care (01) ==
LOC: PREOP 11:06
PROVIDERS: ATTEND Orthopaedic Surgery
DX: Z01.818 Encounter for other preprocedural examination (principal)

== ENCOUNTER 2023-02-24 09:39 | Day surgery (SDC) | payer MEDICARE ==
--- NOTE | 2023-02-22 13:28 | HISTORY AND PHYSICAL ---
ADMISSION HISTORY AND PHYSICAL This would be for outpatient surgery on 02/24/2023. HISTORY: The patient is a 72-year-old active female who fell on Wednesday on her flexed knee. She was found to have a displaced left patellar fracture. She denies any antecedent pain. She has had a knee scope for meniscus tear and some mild arthritis, but had been otherwise doing well. REVIEW OF SYSTEMS: No chest pain, no shortness of breath. No dysuria. PAST MEDICAL HISTORY: Hypertension. PAST SURGICAL HISTORY: Hysterectomy, tonsillectomy, toes, vein stripping, meniscus, cataracts. SOCIAL HISTORY: The patient denies alcohol and tobacco use. FAMILY HISTORY: Noncontributory. PRIMARY CARE PROVIDER: Dr. Vera. MEDICATIONS: Triamterene/hydrochlorothiazide. ALLERGIES: SULFA. Outside radiographs reveal a transverse fracture of the patella with comminution of the distal fragment. PHYSICAL EXAMINATION: GENERAL: The patient is well-developed, well-nourished, in no acute distress. HEENT: Normocephalic, atraumatic. Pupils equal, round, reactive. Oropharynx is clear. NECK: Supple, with no lymphadenopathy. LUNGS: Clear to auscultation bilaterally. HEART: Regular rate and rhythm. ABDOMEN: Soft, nontender, nondistended. EXTREMITIES: Left knee demonstrates ecchymosis. No skin lesions noted. She is unable to perform a straight leg raise. She has intact sensation distally and intact dorsiflexion and plantarflexion of the toes. Pulses are symmetric. IMPRESSION: Closed displaced left patellar fracture. PLAN: Open reduction internal fixation, left patella. The risks, benefits, options, ramifications and recovery were discussed at length with the patient. She understands and wished to proceed. This will be for outpatient surgery on 02/24/2023. Job ID: [id number] DocumentID: [id number] Dictated Date: 02/22/2023 10:29:21 Printing Sign Machine Operator Date: 02/22/2023 13:26:00 Dictated By: BECKY DANIELS MD
[2023-02-24] VITALS (13 sets, daily range): BP systolic 126–154; BP diastolic 74–96
[~2023-02-24] VITALS: Ht 175.3 cm; Wt 65.9 kg
[~2023-02-24 09:39] MED LIST changes: +CHOL-34 PO; +oxyCODONE/APAP 5/325MG (PERCOCET 5) TABLET PO PRN
[2023-02-24] MEDS ORDERED: MIDAZOLAM 2 MG/2 ML (VERSED) VIAL ONE (09:59)
[2023-02-24] MEDS ORDERED: LIDOCAINE PF 2% 5 ML (XYLOCAINE) VIAL ONE (09:59)
[2023-02-24] MEDS ORDERED: ONDANSETRON 4 MG/2 ML (SDV) Z0FRAN ONE (09:59)
[2023-02-24] MEDS ORDERED: fentaNYL INJ 100 MCG/2 ML AMP ONE (09:59)
[2023-02-24] MEDS ORDERED: SEVOFLURANE (ULTANE) 15 ML INHAL SOLN ONE ×2 (09:59→12:08)
[2023-02-24] MEDS ORDERED: proPOfol 200 MG/20 ML (DIPRIVAN) VIAL IV ONE ×2 (09:59→11:40)
[2023-02-24] MEDS ORDERED: BUPIVACAINE 0.25% 30 ML (SENSORCAINE) VIAL ONE (10:00)
[2023-02-24] MEDS ORDERED: morphine PF (DURAMORPH) 10 MG/10 ML AMP ONE (10:00)
[2023-02-24] MEDS ORDERED: ceFAZolin INJECTION 2,000 MG in NS (IVPB) 50 ML IV ONE (10:00)
[2023-02-24] MEDS ORDERED: ceFAZolin INJECTION 2,000 MG ONE (10:18)
[2023-02-24] MEDS ORDERED: NS (IVPB) 50 ML ONE (10:18)
[2023-02-24] MEDS: LACTATED RINGERS 1,000 ML IV PRN ×2 (10:28→11:06)
--- NOTE | 2023-02-24 12:15 | Progress Note-Pre Operative ---
Pre-Operative Progress Note Date of Available H&P: Feb 23, 2023 Date H&P Reviewed: Feb 24, 2023 Time H&P Reviewed: 07:11 Changes from last HP none Pre-Operative Diagnosis: closed, displaced left patella fracture BECKY DANIELS MD Feb 24, 2023 12:15
--- NOTE | 2023-02-24 12:16 | Progress Note-Post Operative ---
Post-Operative Progess Note Surgeon (s)/Scenic Arts Supervisor (s) Surgeon BECKY DANIELS MD Scenic Arts Supervisor: Andrew Lopez Pre-Operative Diagnosis closed, displaced left patella fracture Post-Operative Diagnosis closed, displaced left patella fracture Procedure & Operative Findings Date of Procedure 02/24/23 Procedure Performed/Findings left partial patellectomy and patella tendon repair Anesthesia Type GETA Estimated Blood Loss Estimated blood loss (mL): minimal Specimens/Packing Specimens Removed none Packing: none BECKY DANIELS MD Feb 24, 2023 12:16
--- NOTE | 2023-02-24 12:16 | Anesthesia-General Post-Op ---
General Patient Condition Mental Status/LOC: Same as Preop Cardiovascular: Satisfactory Nausea/Vomiting: Absent Respiratory: Satisfactory Pain: Controlled Complications: Absent Post Op Complications Complications None Follow Up Care/Instructions Patient Instructions None needed. Anesthesia/Patient Condition Patient Condition Patient is doing well, no complaints, stable vital signs, no apparent adverse anesthesia problems. No complications reported per nursing. DALJIT CARRIZALES CRNA Feb 24, 2023 12:16
[2023-02-24] MEDS ORDERED: morphine PF (DURAMORPH) 10 MG/10 ML AMP INJ ONE (12:24)
[2023-02-24] MEDS ORDERED: BUPIVACAINE 0.25% 30 ML (SENSORCAINE) VIAL INJ ONE (12:25)
[2023-02-24] MEDS ORDERED: fentaNYL INJ 100 MCG/2 ML AMP IVP ONE (12:30)
[2023-02-24] MEDS ORDERED: MEPERIDINE (DEMEROL) INJ 50 MG/ML IVP ONE (12:30)
[2023-02-24] MEDS ORDERED: morphine INJ 10 MG/ML 1ML (SYR OR VIAL) IVP ONE (12:30)
[2023-02-24] MEDS ORDERED: ONDANSETRON 4 MG/2 ML (SDV) Z0FRAN IVP PRN (12:30)
[2023-02-24] MEDS ORDERED: morphine INJ 10 MG/ML 1ML (SYR OR VIAL) ONE (12:46)
--- NOTE | 2023-02-24 19:21 | OPERATIVE REPORT ---
DATE OF SERVICE: 02/24/2023 PREOPERATIVE DIAGNOSIS: Left patellar fracture, closed, displaced. POSTOPERATIVE DIAGNOSIS: Left patellar fracture, closed, displaced. PROCEDURES: 1. Left knee partial patellectomy. 2. Left knee patellar tendon repair. SURGEON: Aly Daniels MD. SALES AGENT [employer]URANCE: LEWIS Chua, who assisted throughout the procedure and closed the incision. ANESTHESIA: General endotracheal by Andrew Gauthier CRNA. TOURNIQUET TIME: 37 minutes at 300 mmHg. ESTIMATED BLOOD LOSS: Minimal. DRAINS: None. COMPLICATIONS: None. POSTOPERATIVE PLAN: A 0-60 degrees range of motion with crutch ambulation for 2 weeks and then advancing to range of motion and weightbearing after 2 weeks. STATEMENT OF MEDICAL NECESSITY: The patient is a 72-year-old female, who fell approximately 5 days ago on her flexed knee. She was found to have a left patellar fracture, which was closed and displaced; however, the distal fragment was comminuted and relatively small. The patient was counseled that this may be irreparable. DESCRIPTION OF PROCEDURE: After risks and benefits of the procedure were discussed and questions were answered and informed consent was signed and placed on chart. The operative site was confirmed in the preoperative holding and initialed by the surgeon. The patient was then transported to the operating room and after adequate levels of general endotracheal anesthetic were obtained, a timeout was called, confirming the operative site. The left lower extremity was prepped and draped in the usual sterile fashion. A longitudinal incision was made after elevating the tourniquet. The underlying soft tissues were carefully dissected. Hemostasis was obtained with cautery. The fracture site was identified and the fracture fragment was found to be approximately 3 x 4 cm in size and comminuted. This involved minimal articular surface. It was felt that this was irreparable. Therefore, it was excised and two #5 Tevdek were used in a running [place] fashion to grasp the patellar tendon and the suture arms exited proximally. This created four suture arms that had been whipstitched to the distal extent of tendon and then brought back on itself. Three drill holes were then placed through the patella from proximal to distal and the sutures were passed sequentially through the prepared tunnels. This brought the tendon into the surface of the patella. These were then tied over themselves and then tied to themselves. The wound was copiously irrigated as was the joint. There was a retinacular split both medially and laterally, which was repaired with #5 Tevdek in [id number] interrupted fashion. The knee was then flexed and flexed easily to 90 degrees with no undue tension at the repair site. The wound was further irrigated. The tourniquet was deflated. Pressure was used for hemostasis. The subcutaneous layer was closed with 0 Vicryl for the deep layer and 2-0 Vicryl for the superficial layer, micah used on the skin. Incision was infiltrated with plain Marcaine. A soft dressing was applied followed by brace set from 0-60 degrees and the patient was transported to the recovery room awake and in stable condition. Job ID: [id number] DocumentID: [id number] Dictated Date: 02/24/2023 12:15:49 Tumbler Tender Date: 02/24/2023 19:19:00 Dictated By: ALY DANIELS MD
== END 2023-02-24 14:25 | disposition home or self-care (01) ==
LOC: SDC 09:39
PROVIDERS: ATTEND Orthopaedic Surgery
DX: S82.002A Unspecified fracture of left patella, initial encounter for closed fracture (principal); W18.30XA Fall on same level, unspecified, initial encounter
CPT/HCPCS: 87081

== ENCOUNTER 2023-05-20 11:14 | Outpatient (RCR) | payer MEDICARE ==
[~2023-05-20 11:14] MED LIST changes: -oxyCODONE/APAP 5/325MG (PERCOCET 5) TABLET PO PRN
== END 2023-05-20 13:45 | disposition home or self-care (01) ==
PROVIDERS: ATTEND Orthopaedic Surgery
DX: S82.022A Displaced longitudinal fracture of left patella, initial encounter for closed fracture (principal); X58.XXXA Exposure to other specified factors, initial encounter; I10 Essential (primary) hypertension

== ENCOUNTER → 2023-08-03 | Outpatient (CLI) | payer MEDICARE ==
--- NOTE | 2023-08-03 19:15 | Diagnostic Imaging Report ---
Indication: Routine screening. Comparison is made with prior mammograms from 02/13/2022 and 08/20/2020. 2-D and 3-D bilateral screening mammography was performed with CAD. Bilateral subpectoral breast implants are again noted. Implant contours remain smooth without evidence of extracapsular rupture. Both breasts are heterogeneously dense, limiting the sensitivity of mammography. The parenchymal pattern is stable. No mass or malignant-appearing microcalcifications are seen. Axillae are unremarkable. IMPRESSION: BI-RADS Category 2 No mammographic features suspicious for malignancy are identified. ACR BI-RADS Category 2: Benign findings. Result letter will be mailed to the patient. Note: At least 10% of breast cancer is not imaged by mammography. Dictated by: Dictated on workstation # [id number]
== END ==
LOC: RAD 09:17
PROVIDERS: ATTEND Internal Medicine
DX: Z12.31 Encounter for screening mammogram for malignant neoplasm of breast (principal)
CPT/HCPCS: 77063; 77067